=== PATIENT | female | born 1970 | race Two or more races ===

== ENCOUNTER 2017-09-27 13:26 | Emergency (ER) | payer BC, OTHER ==
[~2017-09-27 13:26] MED LIST: AMLO10TA2 PO; AMLO1CAP12 PO; ASPI81TA50 PO; DILT180C2 PO; LISI1TAB3 PO; METO-239 PO; PHEN15CA2 PO; flexeril
--- NOTE | 2017-09-27 14:15 | PHYS DOC ---
Past History Past Medical History: Hypertension Past Surgical History: Other Smoking: Non-smoker Alcohol Use: None Drug Use: None Adult General Chief Complaint Chief Complaint: UPPER EXTREMITY PAIN HPI HPI 47-year-old right-handed female patient states she woke up 3 days ago with left shoulder pain because she slept bad on her left shoulder. Patient states the pain is constant and getting worse with movement of her arm. Patient denies shortness of breath, chest pain, focal weakness. Patient complains of mild numbness of her hand because of not moving her hand. Review of Systems Review of Systems Constitutional: Denies fever or chills [] Eyes: Denies change in visual acuity, redness, or eye pain [] HENT: Denies nasal congestion or sore throat [] Respiratory: Denies cough or shortness of breath [] Cardiovascular: No additional information not addressed in HPI [] GI: Denies abdominal pain, nausea, vomiting, bloody stools or diarrhea [] : Denies dysuria or hematuria [] Musculoskeletal: Denies back pain, reports joint pain [] Integument: Denies rash or skin lesions [] Neurologic: Denies headache, focal weakness or sensory changes [] Endocrine: Denies polyuria or polydipsia [] All other systems were reviewed and found to be within normal limits, except as documented in this note. Current Medications Current Medications Current Medications Medications (Trade) Dose Ordered Sig/Chio Start Time Stop Time Status Last Admin Dose Admin Ketorolac Tromethamine (Toradol) 60 mg 1X ONCE 09/27/17 14:15 09/27/17 14:16 UNV Allergies Allergies Allergies Coded Allergies Type Severity Reaction Last Updated Verified No Known Drug Allergies 10/30/14 No Physical Exam Physical Exam Constitutional: Well developed, well nourished, mild distress, non-toxic appearance. [] HENT: Normocephalic, atraumatic Eyes: PERRLA, EOMI, conjunctiva normal, no discharge. [] Neck: Normal range of motion, no tenderness, supple, no stridor. [] Cardiovascular:Heart rate regular rhythm, no murmur [] Lungs & Thorax: Bilateral breath sounds clear to auscultation [] Skin: Warm, dry, no erythema, no rash. [] Back: No tenderness, no CVA tenderness. [] Extremities: Left shoulder without deformity or edema, painful range of motion, no neurovascular deficit Neurologic: Alert and oriented X 3, normal motor function, normal sensory function, no focal deficits noted. [] Psychologic: Anxious, judgement normal, mood normal. [] EKG EKG EKG interpreted by me. EKG at 1340 showed sinus rhythm at rate of 78, no acute ST and T-wave elevation, T-wave abnormality in lateral leads[] Radiology/Procedures Radiology/Procedures [] [place] [address] IMAGING REPORT Signed PATIENT: ENMA RAMEY ACCOUNT: [id number] : 1970 LOCATION: ER AGE: 47 SEX: F EXAM STATUS: REG ER ORD. PHYSICIAN: CESAR PARIS MD REASON: left shoulder pain PROCEDURE: SHOULDER 2+V LEFT Three-view left shoulder study History: Left shoulder pain for one day. Findings: No acute fracture or dislocation or osteolytic process is seen. No AC joint separation is evident. There is calcification of the lateral rotator cuff insertion onto the greater tubercle and there is calcification of the subdeltoid bursa. Findings are consistent with calcific tendinitis and bursitis. IMPRESSION: Calcific tendinitis and bursitis. DICTATED AND SIGNED BY: CATHERINE MON MD DATE: 09/27/17 1424 CC: SUKH LIRIANO MD; CESAR PARIS MD ~ Course & Med Decision Making Course & Med Decision Making Pertinent Imaging studies reviewed. (See chart for details) Evaluation of patient in ER showed 47-year-old female patient with complaining of left shoulder pain for 3 days that getting force with movement. Patient did not have deformities of shoulder but had painful range of motion. Patient was able to fall asleep after pain medication. X-ray of shoulder showed calcified tendinitis. Plan to apply a shoulder sling and instruction to move her shoulder with help of other had and follow with her primary care physician. [] Dragon Disclaimer Dragon Disclaimer This electronic medical record was generated, in whole or in part, using a voice recognition dictation system. Departure Departure: Impression: Primary Impression: Left shoulder tendinitis Disposition: 01 HOME, SELF-CARE (At 1459) Condition: IMPROVED Referrals: SUKH LIRIANO MD (PCP) Patient Instructions: Calcific Tendinitis Additional Instructions: Moves your left shoulder frequently Apply ice on your left shoulder Follow-up with your primary care physician in 3-5 days Return to ER if not getting better Scripts Naproxen (NAPROSYN) 500 Mg Tablet 1 TAB PO BID, #20 TAB 1 Refill Prov: CESAR PARIS MD 09/27/17 Methylprednisolone (MEDROL) 4 Mg Tab.ds.pk 1 PKG PO UD, #1 PKG Prov: CESAR PARIS MD 09/27/17 CESAR PARIS MD Sep 27, 2017 14:15
--- NOTE | 2017-09-27 14:27 | RAD ---
Three-view left shoulder study History: Left shoulder pain for one day. Findings: No acute fracture or dislocation or osteolytic process is seen. No AC joint separation is evident. There is calcification of the lateral rotator cuff insertion onto the greater tubercle and there is calcification of the subdeltoid bursa. Findings are consistent with calcific tendinitis and bursitis. IMPRESSION: Calcific tendinitis and bursitis.
[2017-09-27] MEDS ORDERED: KETOROLAC 60 MG/2 ML VIAL. IM ONE (14:30)
[2017-09-27] MEDS ORDERED: NAPR-683 PO (15:01)
[2017-09-27] MEDS ORDERED: METH4TAB2 PO (15:01)
[2017-09-27] MEDS ORDERED: cloNIDine HCL 0.1 MG TABLET ONE (15:23)
[2017-09-27] MEDS ORDERED: cloNIDine HCL 0.1 MG TABLET PO ONE (15:30)
[2017-09-27 15:50] VITALS: BP 184/93
--- NOTE | 2017-09-27 18:13 | EKG ---
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
== END 2017-09-27 15:57 | disposition home or self-care (01) ==
LOC: ER 13:26
DX: M75.92 Shoulder lesion, unspecified, left shoulder (principal); I10 Essential (primary) hypertension
CPT/HCPCS: 73030; 93005; 96372; 99284; J1885

== ENCOUNTER 2018-02-12 11:23 | Inpatient (IN) | payer BC, OTHER ==
[~2018-02-12] VITALS: Ht 172.7 cm; Wt 105.2 kg
[2018-02-12] VITALS (13 sets, daily range): BP systolic 120–220; BP diastolic 60–109
[~2018-02-12 11:23] MED LIST changes: +METH4TAB2 PO; +NAPR-683 PO
[2018-02-12] MEDS ORDERED: ACETAMINOPHEN 325 MG TABLET PO PRN (12:15)
[2018-02-12] MEDS ORDERED: HYDROcodone/APAP 5/325MG 1 TAB TABLET PO PRN ×2 (12:15→16:45)
[2018-02-12] MEDS ORDERED: hydrALAZINE 20 MG/ML VIAL. IV PRN (12:15)
[2018-02-12] MEDS ORDERED: hydrALAZINE 20 MG/ML VIAL. IV ONE (12:15)
[2018-02-12] MEDS ORDERED: ENOXAPARIN 40 MG/0.4 ML SYRINGE. SQ SCH (12:15)
[2018-02-12 12:35] LABS: BASO % 1 % (0-3); EOS # 0.1 x10^3/uL (0.0-0.7); EOS % 1 % (0-3); HEMATOCRIT 41.3 % (36.0-47.0); HEMOGLOBIN 13.7 g/dL (12.0-15.5); LYMPH # 2.4 x10^3/uL (1.0-4.8); LYMPH % 28 % (24-48); MEAN CORPUSCULAR HEMOGLOBIN 25 pg (25-35); MEAN CORPUSCULAR HGB CONC 33 g/dL (31-37); MEAN CORPUSCULAR VOLUME 76 fL (79-100); MONO # 0.5 x10^3/uL (0.0-1.1); MONO % 6 % (0-9); NEUT # 5.4 x10^3uL (1.8-7.7); NEUT % 64 % (31-73); PLATELET COUNT 185 x10^3/uL (140-400); RED BLOOD COUNT 5.45 x10^6/uL (3.50-5.40); RED CELL DISTRIBUTION WIDTH 15.2 % (11.5-14.5); WHITE BLOOD COUNT 8.5 x10^3/uL (4.0-11.0)
[2018-02-12 12:35] LABS: BACTERIA,URINE FEW /HPF (0-FEW); BILIRUBIN,URINE NEG (NEG); CLARITY,URINE HAZY; COLOR,URINE YELLOW; GLUCOSE,URINE NEG (NEG); NITRITE,URINE NEG (NEG); SQUAMOUS EPITHELIAL CELL,UR MANY /LPF; UROBILINOGEN,URINE 0.2 mg/dL (0.2 mg/dL)
[2018-02-12 12:38] LABS: ALBUMIN 3.7 g/dL (3.4-5.0); ALBUMIN/GLOBULIN RATIO 0.9 (1.0-1.7); CALCIUM 8.7 mg/dL (8.5-10.1); CREATININE 0.8 mg/dL (0.6-1.0); GFR 77.2; MAGNESIUM 1.9 mg/dL (1.8-2.4); POTASSIUM 4.1 mmol/L (3.5-5.1); TOTAL BILIRUBIN 0.5 mg/dL (0.2-1.0); TOTAL PROTEIN 7.7 g/dL (6.4-8.2)
[2018-02-12] MEDS ORDERED: MORPHINE SULFATE 4 MG/ML DISP.SYRIN. IV PRN (12:45)
--- NOTE | 2018-02-12 13:22 | RAD ---
CT head without intravenous contrast History: Tingling down right arm since previous day. Comparison: None. Technique: Axial images are obtained of the head from the skull base through the vertex without IV contrast. Exposure: One or more of the following individualized dose reduction techniques were utilized for this examination: 1. Automated exposure control 2. Adjustment of the mA and/or kV according to patient size 3. Use of iterative reconstruction technique Findings: Variant anatomy with cavum septi pellucidi et vergae is present. The ventricles are appropriate in size, shape, and location for the patient's age. No obvious intracranial mass, mass-effect, midline shift, hemorrhage or obvious acute infarction is identified. Basilar cisterns are patent. Bone windows demonstrate no acute calvarial abnormality. The visualized paranasal sinuses appear clear. Impression: No acute intracranial process. Please note that CT can be relatively insensitive to acute ischemic infarction for up to 24 hours after symptom onset. Electronically signed by: Renan Puri MD (02/12/2018 1:18 PM) [id number]
[2018-02-12] MEDS ORDERED: LEVO100T5 PO (13:58)
[2018-02-12] MEDS ORDERED: LISI-334 PO (13:58)
[2018-02-12] MEDS ORDERED: METO25TA4 PO (13:58)
[2018-02-12] MEDS ORDERED: APIX5TAB3 PO (14:06)
[2018-02-12] MEDS ORDERED: CYCL-331 PO (14:06)
--- NOTE | 2018-02-12 14:26 | RAD ---
INDICATION: Short of breath, tingling down right arm. TECHNIQUE: Two-view chest radiograph was obtained. Comparison is from April 18, 2016. FINDINGS: The lungs are clear. There is no pleural effusion. The heart is not enlarged and there is no heart failure. Bony structures are intact. Anterior cervical fusion hardware is noted. Leads overlie the patient. IMPRESSION: No acute thoracic findings. Electronically signed by: Todd Watson MD (02/12/2018 2:22 PM) [facility]
[2018-02-12] MEDS ORDERED: CYCLOBENZAPRINE 10 MG TABLET. PO PRN (15:45)
--- NOTE | 2018-02-12 15:56 | RAD ---
Indication: Right arm numbness Technique: Study is dated February 12, 2018. Grayscale, color-flow, and spectral waveform analysis was performed. There is no comparison study available. Findings: Right Carotid: The 2 D images demonstrate minimal soft plaquing with no evidence of significant narrowing. The color images are normal without turbulence or jet effect. The CCA Peak systolic velocity is 97 cm/sec, ICA peak systolic velocity is 105 cm/sec, and ICA end-diastolic velocity is 32 cm/sec. The ICA/CCA ratio is 1.1. Left Carotid: The 2 D images demonstrate minimal soft plaquing with no evidence of significant narrowing. The color images are normal without turbulence or jet effect. The CCA Peak systolic velocity is 97 cm/sec, ICA peak systolic velocity is 111 cm/sec, and ICA end-diastolic velocity is 40 cm/sec. The ICA/CCA ratio is 1.1. Vertebral Arteries: Antegrade flow is noted within both vertebral arteries. All measurements follow NASCET methodology. Impression: Minimal soft plaquing in the carotid bulbs without hemodynamically significant stenosis. Electronically signed by: Todd Watson MD (02/12/2018 3:52 PM) [facility]
--- NOTE | 2018-02-12 16:02 | PDOC2 ---
CONSULT Date of Admission DATE: 02/12/18 TIME: 15:55 Reason for Consult: arrhythmias, hypertension History of Present Illness Ms Dejesus is a 47 year old female who was direct admitted from her PCP office with complaints of right arm numbness and tingling, neck pain and blurred vision. She reports that she started having numbness yesterday but thought it would resolve. This am while getting ready for work she began to have discomfort up her neck and headache. She states she had bent down and on getting up she had significant blurring of her vision and felt her heart was racing. She has been diagnosed with paroxysmal atrial fibrillation and due to possibility of stroke on MRI, was started on Eliquis which she had been taking only daily. She was noted to also have significantly elevated blood pressure. She does report taking her meds regularly with the exception of today. Nursing did check with her pharmacy and were told that she had not picked up meds since October. She denies other symptoms./ Past Medical History 03/22/16 The left ventricle is normal size. The left ventricular systolic function is normal. The ejection fraction is 55-60%. There is no significant aortic valvular stenosis. Doppler and Color Flow revealed no significant aortic regurgitation. Doppler and Color Flow revealed mild mitral regurgitation. Doppler and Color Flow revealed trace tricuspid regurgitation. 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 Past Surgical History neck fusion, c section, tubal ligation Family History diabetes, hypertension, CAD Mom had CABG in her late 30s. Social History non smoker, no significant ETOH, no illicit drugs Current Medications Current Medications Acetaminophen/ Hydrocodone Bitart (Lortab 5/325) 1 tab PRN Q4HRS PRN PO Mild Pain Last administered on 02/12/18at 13:06; Start 02/12/18 at 12:15 Acetaminophen (Tylenol) 650 mg PRN Q6HRS PRN PO Headaches, Temp > 101.5F; Start 02/12/18 at 12:15 Morphine Sulfate (Morphine 4mg Syringe) 2 mg PRN Q1HR PRN IV PAIN; Start at 12:45 Enoxaparin Sodium (Lovenox 40mg Syringe) 40 mg Q24H SQ Last administered on at 12:22; Start 02/12/18 at 12:15; Stop 02/12/18 at 15:48; Status DC Ondansetron HCl (Zofran) 4 mg PRN Q8HRS PRN IV NAUSEA/VOMITING; Start 02/12/18 at 12:15 Hydralazine HCl (Apresoline) 10 mg PRN Q4HRS PRN IV ELEVATED BP, SEE COMMENTS Last administered on 02/12/18at 15:51; Start 02/12/18 at 12:15 Hydralazine HCl (Apresoline) 20 mg 1X ONCE IV Last administered on 02/12/18at 12:21; Start 02/12/18 at 12:15; Stop 02/12/18 at 12:31; Status DC Levothyroxine Sodium (Synthroid) 100 mcg DAILY06 PO ; Start 02/13/18 at 06:00 Lisinopril (Prinivil) 20 mg DAILY PO ; Start 02/13/18 at 09:00 Metoprolol Tartrate (Lopressor) 25 mg BID PO Last administered on 02/12/18at 15: 51; Start 02/12/18 at 21:00 Apixaban (Eliquis) 5 mg BID PO ; Start 02/12/18 at 21:00 Cyclobenzaprine HCl (Flexeril) 10 mg PRN Q6HRS PRN PO MUSCLE SPASMS; Start at 15:45 Active Scripts Active Medrol (Methylprednisolone) 4 Mg Tab.ds.pk 1 Pkg PO UD Reported Cyclobenzaprine Hcl 10 Mg Tablet 1 Tab PO TID PRN Eliquis (Apixaban) 5 Mg Tablet 5 Mg PO BID Levothyroxine Sodium 100 Mcg Tablet 1 Tab PO DAILY06 Metoprolol Tartrate 25 Mg Tablet 1 Tab PO BID Lisinopril 20 Mg Tablet 1 Tab PO DAILY Allergies: Coded Allergies: No Known Drug Allergies (Unverified , 10/30/14) Review of System as per HPI General: Alert, Oriented X3, Cooperative, mild distress HEENT: Atraumatic, EOMI, Mucous membr. moist/pink Lungs: Clear to auscultation, Normal air movement Heart: Regular rate, Normal S1, Normal S2, Other (no gallops, clicks or rubs) Abdomen: Normal bowel sounds, Soft Extremities: No cyanosis, No edema, Normal pulses Neuro: Normal speech Psych/Mental Status: Mental status NL, Mood NL VITALS Vital Signs Date Time Temp Pulse Resp B/P (MAP) Pulse Ox O2 Delivery O2 Flow Rate FiO2 02/12/18 15:51 197/94 02/12/18 14:06 Room Air 02/12/18 13:40 98.2 84 99 Labs Laboratory Tests Test 02/12/18 11:37 02/12/18 11:51 Urine Collection Type Unknown Urine Color Yellow Urine Clarity Hazy Urine pH 6.0 Urine Specific [place] 1.020 Urine Protein 30 mg/dl (NEG-TRACE) Urine Glucose (UA) Neg mg/dL (NEG) Urine Ketones (Stick) Neg mg/dL (NEG) Urine Blood Small (NEG) Urine Nitrite Neg (NEG) Urine Bilirubin Neg (NEG) Urine Urobilinogen Dipstick 0.2 mg/dL (0.2 mg/dL) Urine Leukocyte Esterase Neg (NEG) Urine RBC 1-2 /HPF (0-2) Urine WBC 1-4 /HPF (0-4) Urine Squamous Epithelial Cells Many /LPF Urine Bacteria Few /HPF (0-FEW) Urine Mucus Mod /LPF White Blood Count 8.5 x10^3/uL (4.0-11.0) Red Blood Count 5.45 x10^6/uL (3.50-5.40) Hemoglobin 13.7 g/dL (12.0-15.5) Hematocrit 41.3 % (36.0-47.0) Mean Corpuscular Volume 76 fL (79-100) Mean Corpuscular Hemoglobin 25 pg (25-35) Mean Corpuscular Hemoglobin Concent 33 g/dL (31-37) Red Cell Distribution Width 15.2 % (11.5-14.5) Platelet Count 185 x10^3/uL (140-400) Neutrophils (%) (Auto) 64 % (31-73) Lymphocytes (%) (Auto) 28 % (24-48) Monocytes (%) (Auto) 6 % (0-9) Eosinophils (%) (Auto) 1 % (0-3) Basophils (%) (Auto) 1 % (0-3) Neutrophils # (Auto) 5.4 x10^3uL (1.8-7.7) Lymphocytes # (Auto) 2.4 x10^3/uL (1.0-4.8) Monocytes # (Auto) 0.5 x10^3/uL (0.0-1.1) Eosinophils # (Auto) 0.1 x10^3/uL (0.0-0.7) Basophils # (Auto) 0.0 x10^3/uL (0.0-0.2) Prothrombin Time 10.4 SEC (9.4-11.4) Prothromb Time International Ratio 1.0 (0.9-1.1) Sodium Level 136 mmol/L (136-145) Potassium Level 4.1 mmol/L (3.5-5.1) Chloride Level 103 mmol/L (98-107) Carbon Dioxide Level 29 mmol/L (21-32) Anion Gap 4 (6-14) Blood Urea Nitrogen 8 mg/dL (7-20) Creatinine 0.8 mg/dL (0.6-1.0) Estimated GFR (Cockcroft-Gault) 77.2 BUN/Creatinine Ratio 10 (6-20) Glucose Level 87 mg/dL (70-99) Calcium Level 8.7 mg/dL (8.5-10.1) Magnesium Level 1.9 mg/dL (1.8-2.4) Total Bilirubin 0.5 mg/dL (0.2-1.0) Aspartate Amino Transf (AST/SGOT) 24 U/L (15-37) Alanine Aminotransferase (ALT/SGPT) 31 U/L (14-59) Alkaline Phosphatase 114 U/L (46-116) Creatine Kinase 117 U/L (26-192) Troponin I Quantitative < 0.017 ng/mL (0-0.055) Total Protein 7.7 g/dL (6.4-8.2) Albumin 3.7 g/dL (3.4-5.0) Albumin/Globulin Ratio 0.9 (1.0-1.7) Images EKG - sinus rhythm, non specific abnormalities. CT chest - Impression: No acute intracranial process. Please note that CT can be relatively insensitive to acute ischemic infarction for up to 24 hours after symptom onset. CXR - IMPRESSION: No acute thoracic findings. Assessment/Plan 1. accelerated hypertension - resume home meds, add HCTZ. Echo pending. If continuing to require PRN hydralazine would add Norvasc oral or scheduled hydralazine. 2. TIA - carotid pending. no acute abn by CT 3. paroxysmal atrial fibrillation - remains sinus rhythm. mild bradycardia. resume metoprolol at 1/2 dose. resume eliquis BID. suggest outpatient MCT for burden. 4. Cervical radiculopathy - toradol x1. mgmt per [facility]IG[facility] Feb 12, 2018 16:02
[2018-02-12] MEDS: ONDANSETRON PF 4 MG/2 ML VIAL. IV PRN ×2 (16:42→21:24)
[2018-02-12] MEDS ORDERED: KETOROLAC 30 MG/ML VIAL. IV PRN (16:45)
[2018-02-12] MEDS ORDERED: ONDANSETRON ODT 4 MG TAB.RAPDIS PO PRN (18:30)
[2018-02-12] MEDS ORDERED: ONDANSETRON ODT 4 MG TAB.RAPDIS ONE (18:31)
[2018-02-12] MEDS ORDERED: METOPROLOL TART IMMED RELEASE 25 MG TABLET PO SCH (21:00)
[2018-02-12] MEDS: METOPROLOL TART IMMED RELEASE 25 MG TABLET PO SCH (21:00)
[2018-02-12] MEDS: APIXABAN 5 MG TABLET. PO SCH (21:05)
[2018-02-13] VITALS (10 sets, daily range): BP systolic 111–172; BP diastolic 40–75
[2018-02-13 06:00] LABS: CALCIUM 8.5 mg/dL (8.5-10.1); CREATININE 0.7 mg/dL (0.6-1.0); GFR 90.1; POTASSIUM 3.5 mmol/L (3.5-5.1)
[2018-02-13] MEDS ORDERED: LEVOTHYROXINE 100 MCG TABLET PO SCH (06:00)
[2018-02-13 06:02] LABS: BASO # 0.1 x10^3/uL (0.0-0.2); BASO % 1 % (0-3); EOS % 0 % (0-3); HEMOGLOBIN 13.6 g/dL (12.0-15.5); LYMPH % 18 % (24-48); MEAN CORPUSCULAR HEMOGLOBIN 25 pg (25-35); MEAN CORPUSCULAR HGB CONC 33 g/dL (31-37); MEAN CORPUSCULAR VOLUME 76 fL (79-100); MONO # 0.5 x10^3/uL (0.0-1.1); MONO % 4 % (0-9); NEUT # 8.3 x10^3uL (1.8-7.7); NEUT % 77 % (31-73); PLATELET COUNT 275 x10^3/uL (140-400); RED BLOOD COUNT 5.37 x10^6/uL (3.50-5.40); RED CELL DISTRIBUTION WIDTH 15.8 % (11.5-14.5); WHITE BLOOD COUNT 10.8 x10^3/uL (4.0-11.0)
[2018-02-13 06:31] LABS: % BANDS 2 % (0-9); % BASOS 1 % (0-3); % EOS 1 % (0-5); % LYMPHS 18 % (24-48); % MONOS 3 % (0-10); % SEGS 75 % (35-66)
[2018-02-13 06:32] LABS: PLT ESTIMATE ADEQUATE (ADEQUATE)
[2018-02-13 06:34] LABS: POLYCHROMASIA SLIGHT; TOXIC GRANULATION SLIGHT
[2018-02-13] MEDS: APIXABAN 5 MG TABLET. PO SCH ×2 (07:25→17:47)
[2018-02-13] MEDS ORDERED: LISINOPRIL 20 MG TABLET ONE (07:25)
[2018-02-13] MEDS: METOPROLOL TART IMMED RELEASE 25 MG TABLET PO SCH ×2 (07:25→17:47)
[2018-02-13] MEDS ORDERED: hydroCHLOROthiazide 12.5 MG CAPSULE ONE (07:26)
[2018-02-13] MEDS ORDERED: hydroCHLOROthiazide 12.5 MG CAPSULE PO SCH (09:00)
[2018-02-13] MEDS ORDERED: LISINOPRIL 20 MG TABLET PO SCH (09:00)
--- NOTE | 2018-02-13 12:54 | PN ---
DATE: 02/13/2018 SUBJECTIVE: This 47-year-old female came in with all sorts of problems in terms of right arm numbness, tingling, neck pain, blurred vision loss. The patient was having possible TIA. As it were she was admitted to the hospital for further evaluation and treatment thereof. The patient seems to be doing relatively better right now, although she has had elevated blood pressure and we are continuing to monitor her accordingly. Recently, she had an MRI back a few months ago and did demonstrate evidence of a lacunar infarction, although present CT does not show any signs of such the MRI did. In any case, the patient's blood pressure was also markedly elevated this morning and so we had to place her on a nicardipine drip to keep her blood pressure under reasonable control as well as hydralazine. She is resting fairly comfortably. Her labs look basically stable on her CBC. Her chemistries were basically unremarkable. Troponin is negative. We will go ahead and continue to monitor the patient accordingly and make further evaluation on her per those results. Otherwise, the patient is alert and oriented. Her speech is fluent, spontaneous, appropriate. Cranial nerves 2-12 are grossly intact. PLAN: We will continue to monitor the patient accordingly make further evaluation on her along with Cardiology and Neurology. SUKH LIRIANO MD DR: DOMINICK/claudio JOB#: [id number] / [id number]
--- NOTE | 2018-02-13 13:57 | CARD ---
MR#: [id number] Date of Study: 02/12/2018 Ordering Physician: SUKH LIRIANO, Referring Physician: SUKH LIRIANO, Tech: TESSIE Mccann APPROVED REPORT EXAM: Two-dimensional and M-mode echocardiogram with Doppler and color Doppler. Other Information Quality : GoodHR: 61bpm INDICATION Atrial Fibrillation 2D DIMENSIONS RVDd3.0 (2.9-3.5cm)Left Atrium(2D)3.7 (1.6-4.0cm) IVSd1.4 (0.7-1.1cm)Aortic Root(2D)2.7 (2.0-3.7cm) LVDd4.6 (3.9-5.9cm)LVOT Diameter1.9 (1.8-2.4cm) PWd1.4 (0.7-1.1cm)LVDs2.9 (2.5-4.0cm) FS (%) 36.8 %SV66.6 ml LVEF(%)66.7 (>50%) Aortic Valve AoV Peak Carlton.191.4cm/sAoV VTI43.2cm AO Peak GR.14.7mmHgLVOT Peak [place].100.7cm/s LVOT VTI 26.98cmAO Mean GR.8mmHg EVA (VMAX)1.03im4GKG (VTI)1.86cm2 Mitral Valve MV E Vsxepcxn35.1cm/sMV DECEL XHHI392ts MV A Dyucworq23.6cm/sE/A Ratio1.0 Pulmonary Valve PV Peak Rdolcekl152.4cm/sPV Peak Grad.5mmHg LEFT VENTRICLE The left ventricle is normal size. There is mild concentric left ventricular hypertrophy. The left ve ntricular systolic function is normal. The ejection fraction is estimated at 65%. There is normal LV segmental wall motion. The left ventricular diastolic function and filling is normal for age. RIGHT VENTRICLE The right ventricle is normal size. The right ventricular systolic function is normal. ATRIA The left atrium size is normal. The right atrium size is normal. The interatrial septum is intact wit h no evidence for an atrial septal defect or patent foramen ovale as noted on 2-D or Doppler imaging. AORTIC VALVE The aortic valve is thickened but opens well. Doppler and Color Flow revealed no significant aortic r egurgitation. There is no significant aortic valvular stenosis. There is no aortic valvular vegetatio n. MITRAL VALVE The mitral valve is thickened but opens well. There is no evidence of mitral valve prolapse. There is no mitral valve stenosis. Doppler and Color-flow revealed trace mitral regurgitation. TRICUSPID VALVE The tricuspid valve leaflets are thickened , but open well. Doppler and Color Flow revealed no tricus pid valve regurgitation noted. There is no tricuspid valve prolapse or vegetation. There is no tricus pid valve stenosis. PULMONIC VALVE The pulmonic valve is not well visualized. Doppler and Color Flow revealed no pulmonic valvular regur gitation. There is no pulmonic valvular stenosis. GREAT VESSELS The aortic root is normal in size. The IVC was not visualized. PERICARDIAL EFFUSION There is no pleural effusion. There is no evidence of significant pericardial effusion. Critical Notification Critical Value: No <Conclusion> The left ventricular systolic function is normal. The ejection fraction is estimated at 65%. There is normal LV segmental wall motion. Doppler and Color-flow revealed trace mitral regurgitation. There is no evidence of significant pericardial effusion. Signed by : Jona Castillo, Electronically Approved : 02/13/2018 13:56:49
[2018-02-13] MEDS ORDERED: METO25TA4 PO (16:29)
[2018-02-13] MEDS ORDERED: HYDR12.53 PO (16:30)
--- NOTE | 2018-02-13 21:59 | CONS ---
DATE OF CONSULTATION: NEUROLOGY CONSULTATION REFERRING PHYSICIAN: Dr. Cedeño REASON FOR CONSULTATION: Headaches, blurred vision and numbness of the right upper extremity, rule out transient ischemic attack versus stroke. HISTORY OF PRESENT ILLNESS: This is a 47-year-old female who was admitted directly from her primary care physician's office on the account of acute onset of neck pain radiating into the right upper extremity and associated with numbness and paresthesia on the day before admission. The patient has not been taking her blood pressure medications regularly for the last 2 weeks. Also, she has not taken Eliquis " anticoagulant'' because she ran out of her medications. According to the patient, a brain MRI done recently revealed evidence of old stroke, but we could not obtain the official results. The patient stated she has had intermittent blurred vision and slight headaches. She denies chest pain, shortness of breath or palpitations; however, she has had intermittent cardiac arrhythmias and was diagnosed with paroxysmal atrial fibrillation approximately 2 weeks ago. The patient was placed on Eliquis a month ago, which she tried for 2 weeks, but she has not taken the medicine in the last 2 weeks. The patient was diagnosed with cervical radiculopathy 5 years ago and she had an MRI of the cervical spine, which revealed evidence of degenerative disk disease at multiple levels from C5-C7. Currently, she denies any new medical or neurological complaints. She denies chest pain, shortness of breath, palpitation, dysarthria, dysphagia, or vertigo. PAST MEDICAL HISTORY: Past medical history is significant for paroxysmal atrial fibrillations, hypertension, hypothyroidism, chronic radicular neck pain, and lower back pain. PAST SURGICAL HISTORY: Past surgical history is significant for anterior cervical fusion at C5-C6 in 2012, tubal ligation, , cardiac catheterization 2 years ago which was negative for coronary artery disease. SOCIAL HISTORY: The patient denies smoking, alcohol drinking, or illicit drug use. FAMILY HISTORY: Positive for hypertension, diabetes mellitus, coronary artery disease. Mother had coronary artery bypass graft in late 30s. CURRENT HOME MEDICATIONS: Eliquis 5 mg twice daily, aspirin 81 mg daily, hydrochlorothiazide 12.5 mg daily, lisinopril 20 mg daily, and levothyroxine 100 mcg daily, metoprolol 12.5 mg b.i.d. CURRENT HOSPITAL MEDICATIONS: Include fentanyl 50 mcg IV q. 2 hours p.r.n., nicardipine drip, Lortab 5/325 mg 2 tablets q. 6 hours p.r.n. for pain, Toradol 30 mg q. 6 hours p.r.n. intravenously for neck pain, Flexeril 10 mg q. 6 hours p.r.n. for muscle spasm, and hydralazine 10 mg q. 4 hours p.r.n. intravenously for severe hypertension. ALLERGIES: No known drug allergies. REVIEW OF SYSTEMS: A 10-point review of system was performed and consistent with neck pain radiating to the right shoulder and associated with numbness and paresthesia, mild frontal headaches. PHYSICAL EXAMINATION: GENERAL: Obese, moderately obese female, in acute distress. VITAL SIGNS: She weighs 232 pounds, blood pressure 120/67, respiratory rate 17, pulse is 62 regular, afebrile, oxygen saturation is 98% on room air. HEENT: Normocephalic, atraumatic, otherwise unremarkable. NECK: Supple. Negative for carotid bruit, JVD, lymphadenopathy or thyromegaly. LUNGS: Are clear to A and P. CARDIOVASCULAR: Regular rate and rhythm, normal S1, S2. There is no S3, S4, or murmur. ABDOMEN: Soft. Bowel sounds positive. EXTREMITIES: Are negative for cyanosis, clubbing or pitting edema. NEUROLOGICAL EXAMINATION: 1. MENTAL STATUS: The patient is alert and oriented x 3. Speech is fluent. There are no language dysfunctions. Memory, judgment, and abstract thinking are normal. The patient denies hallucination or delusion. 2. CRANIAL NERVES: Visual randolph are full. The pupils are reactive to light and accommodation. The extraocular movements are intact. There is no nystagmus. There is no facial motor or sensory deficit. Hearing is intact bilaterally. The palate is elevated symmetrically. Sternocleidomastoid muscles are powerful bilaterally. The patient shrugs her shoulders symmetrically, protrudes her tongue in the midline without fasciculation or atrophy. 3. MOTOR EXAMINATION: No focal muscle bulk was seen. The tone is normal. The strength is 5/5 throughout. 4. SENSORY EXAMINATION: Revealed diminished pinprick and light touch senses in the right C5 and C6 distributions compared to those on the left side. Deep tendon reflexes were symmetric and hypoactive. Gait and coordinations were normal. DIAGNOSTIC STUDIES: Initial nonenhanced head CT scan revealed no acute intracranial process. Carotid Doppler study revealed no significant stenosis of the internal carotid arteries bilaterally. Echocardiogram is pending. Chest x-ray revealed no acute thoracic findings. LABORATORY DATA: CBC revealed white blood cells of 10.8 thousand, hemoglobin 13.6, hematocrit 41, platelet count 275,000. Chemistry revealed sodium of 136, potassium 3.5, chloride 102, CO2 of 26, BUN is 8, creatinine 0.7, glucose 97, and the calcium is 8.5. Troponin level is normal. Lipid profile revealed an elevated cholesterol at 226 with elevated LDL to 167 with normal triglyceride at 212. Urinalysis is negative for urinary tract infections. IMPRESSION: 1. Emergency hypertension-resolved. 2. History of paroxysmal atrial fibrillation with current sinus bradycardia at rate of 757-758. 3. Chronic neck pain with cervical radiculopathy, more prominent at C5-C6, status post cervical spine fusion in 2012. 4. Multiple medical problems include hypertension, hypothyroidism, and currently hyperlipidemia, and paroxysmal atrial fibrillations. RECOMMENDATIONS: 1. Continue with current management initiated by Dr. Cedeño including multiple antihypertensives. 2. Continue with her current management for cervical radiculopathy. 3. Await echocardiogram. 4. We will arrange for EMG/NCS of the upper extremities to rule out entrapment neuropathy in the lower extremities versus cervical radiculopathy. M gO SARMIENTO MD DR: GENE/claudio JOB#: [id number] / [id number]
[2018-02-14] MEDS ORDERED: ASPIRIN ENTERIC COATED 81 MG TABLET.DR. PO SCH (08:00)
== END 2018-02-13 17:30 | disposition short-term general hospital (02) | DRG 69 ==
LOC: ICU 11:23 → UNDODISIN 02-13 17:30
PROVIDERS: ADMIT Family Medicine; ATTEND Family Medicine
DX: G45.9 Transient cerebral ischemic attack, unspecified (principal); I21.A1 Myocardial infarction type 2; I67.89 Other cerebrovascular disease; E78.5 Hyperlipidemia, unspecified; G89.29 Other chronic pain; R00.1 Bradycardia, unspecified; H54.7 Unspecified visual loss; M50.10 Cervical disc disorder with radiculopathy, unspecified cervical region; I10 Essential (primary) hypertension; E03.9 Hypothyroidism, unspecified; I48.0 Paroxysmal atrial fibrillation; Z86.32 Personal history of gestational diabetes; Z86.73 Personal history of transient ischemic attack (TIA), and cerebral infarction without residual deficits; Z83.3 Family history of diabetes mellitus; Z82.49 Family history of ischemic heart disease and other diseases of the circulatory system; Z98.1 Arthrodesis status; Z98.51 Tubal ligation status; Z79.899 Other long term (current) drug therapy
CPT/HCPCS: 36415; 70450; 71046; 80048; 80053; 80061; 81001; 82550; 83735; 84484; 85007; 85025; 85610; 87086; 87641; 93306; 93880; J0360; J1650; J2270; J2405; J7050

== ENCOUNTER 2018-12-16 16:43 | Emergency (ER) | payer BC, OTHER ==
[~2018-12-16] VITALS: Ht 170.2 cm; Wt 106.6 kg
[~2018-12-16 16:43] MED LIST changes: -AMLO10TA2 PO; +AMLO10TA8 PO; +APIX5TAB3 PO; +CYCL-331 PO; +HYDR12.572 PO; +LEVO100T5 PO; +LISI-334 PO; +METO25TA4 PO
[2018-12-16] MEDS ORDERED: hydrALAZINE 20 MG/ML VIAL. IV ONE (17:15)
[2018-12-16] MEDS ORDERED: METOPROLOL TARTRATE 5 MG/5 ML VIAL. IV ONE (17:45)
[2018-12-16 18:00] VITALS: BP 145/72
--- NOTE | 2018-12-16 18:01 | RAD ---
CT HEAD WO CONTRAST History: Headache, hypertension, on blood thinners, pressure behind the left eye Comparison: February 12, 2018 Technique: Noncontrast CT imaging was performed of the head. Exposure: One or more of the following individualized dose reduction techniques were utilized for this examination: 1. Automated exposure control 2. Adjustment of the mA and/or kV according to patient size 3. Use of iterative reconstruction technique. Findings: There is mild motion. No acute extra-axial or parenchymal hemorrhage is identified. There is no significant intra-axial mass effect, midline shift, or extra-axial fluid collection. The nicole-white differentiation of the major vascular territories is preserved. The ventricles, sulci, and cisterns are within normal limits in size and configuration. There is again cavum septum pellucidum and vergae. The mastoid air cells and the visualized paranasal sinuses are aerated. No acute calvarial abnormality is identified. Impression: 1. No acute intracranial abnormality is identified. Electronically signed by: Иван Cervantes MD (12/16/2018 5:58 PM) [facility]
[2018-12-16 18:04] LABS: BASO # 0.1 x10^3/uL (0.0-0.2); BASO % 1 % (0-3); EOS # 0.2 x10^3/uL (0.0-0.7); EOS % 2 % (0-3); HEMATOCRIT 38.6 % (36.0-47.0); HEMOGLOBIN 12.6 g/dL (12.0-15.5); LYMPH # 2.3 x10^3/uL (1.0-4.8); LYMPH % 28 % (24-48); MEAN CORPUSCULAR HEMOGLOBIN 24 pg (25-35); MEAN CORPUSCULAR HGB CONC 33 g/dL (31-37); MEAN CORPUSCULAR VOLUME 74 fL (79-100); MONO # 0.4 x10^3/uL (0.0-1.1); MONO % 5 % (0-9); NEUT # 5.4 x10^3uL (1.8-7.7); NEUT % 64 % (31-73); PLATELET COUNT 180 x10^3/uL (140-400); RED BLOOD COUNT 5.19 x10^6/uL (3.50-5.40); RED CELL DISTRIBUTION WIDTH 16.6 % (11.5-14.5); WHITE BLOOD COUNT 8.4 x10^3/uL (4.0-11.0)
--- NOTE | 2018-12-16 18:07 | PHYS DOC ---
Past History Past Medical History: A-Fib, Hypertension (SYL BANDA MD) Past Surgical History: Cervical Fusion, , Tubal ligation (SYL BANDA MD) Smoking: Non-smoker Alcohol Use: None Drug Use: None (SYL BANDA MD) Adult General Chief Complaint Chief Complaint: HYPERTENSION HPI HPI Patient is a 48 year old female who presents with complaint of headache and pressure behind denies. Patient states that her blood pressure has been running high over the past 2-3 days. States that she ran out of her lisinopril me dication. On further questioning she also notes that she is supposed be taking metoprolol and has not been taking this over the past few days as well. Patient went to her primary care physician's office and was referred to the emergency department due to hypertension and headache. Notes that her blood pressure has been over 230/110 at home. Blood pressure present to the emergency department is 190/106. Denies chest pain or shortness of breath currently. Notes that she has been having headache over the past 2-3 days and has been taking Tylenol with no relief. Denies loss of vision, difficulty with speech or swallowing, or unil ateral weakness. States that she has had history of "mini stroke." States that she is currently on Eliquis daily and has not missed any doses. (SYL BANDA MD) Review of Systems Review of Systems Constitutional: Denies fever or chills [] Eyes: Denies change in visual acuity, redness, or eye pain [] HENT: Denies nasal congestion or sore throat [] Respiratory: Denies cough or shortness of breath [] Cardiovascular: No additional information not addressed in HPI [] GI: Denies abdominal pain, nausea, vomiting, bloody stools or diarrhea [] : Denies dysuria or hematuria [] Musculoskeletal: Denies back pain or joint pain [] Integument: Denies rash or skin lesions [] Neurologic: Denies headache, focal weakness or sensory changes [] Endocrine: Denies polyuria or polydipsia [] All other systems were reviewed and found to be within normal limits, except as documented in this note. (SYL BANDA MD) Current Medications Current Medications Current Medications Medications (Trade) Dose Ordered Sig/Chio Start Time Stop Time Status Last Admin Dose Admin Hydralazine HCl (Apresoline) 10 mg 1X ONCE 12/16/18 17:15 12/16/18 17:16 DC 12/16/18 17:53 10 MG Metoprolol Tartrate (Lopressor Vial) 5 mg 1X ONCE 12/16/18 17:45 12/16/18 17:46 DC 12/16/18 17:54 5 MG (SYL BANDA MD) Allergies Allergies Allergies Coded Allergies Type Severity Reaction Last Updated Verified No Known Drug Allergies 10/30/14 No (SYL BANDA MD) Physical Exam Physical Exam Constitutional: Well developed, well nourished, no acute distress, non-toxic a ppearance. [] HENT: Normocephalic, atraumatic, bilateral external ears normal, oropharynx moist, no oral exudates, nose normal. [] Eyes: PERRLA, EOMI, conjunctiva normal, no discharge. [] Neck: Normal range of motion, no tenderness, supple, no stridor. [] Cardiovascular:Heart rate regular rhythm, no murmur [] Lungs & Thorax: Bilateral breath sounds clear to auscultation [] Abdomen: Bowel sounds normal, soft, no tenderness, no masses, no pulsatile masses. [] Skin: Warm, dry, no erythema, no rash. [] Back: No tenderness, no CVA tenderness. [] Extremities: No tenderness, no cyanosis, no clubbing, ROM intact, no edema. [] Neurologic: Alert and oriented X 3, normal motor function, normal sensory function, no focal deficits noted. [] Psychologic: Affect normal, judgement normal, mood normal. [] (SYL BANDA MD) Current Patient Data Vital Signs Vital Signs Date Time Temp Pulse Resp B/P (MAP) Pulse Ox O2 Delivery O2 Flow Rate FiO2 12/16/18 17:54 70 162/95 12/16/18 16:57 98.3 16 Room Air (SYL BANDA MD) EKG EKG Interpreted by me: Heart rate 66, sinus rhythm, normal intervals, normal axis, no acute ST/T-wave abnormalities present[] (SYL BANDA MD) Radiology/Procedures Radiology/Procedures [address] [address] IMAGING REPORT Signed PATIENT: ENMA STEINBERG ACCOUNT: [id number] : 1970 LOCATION: ER AGE: 48 SEX: F EXAM STATUS: REG ER ORD. PHYSICIAN: SYL BANDA MD REASON: headache, htn, on blood thinners, pressure behind left eye PROCEDURE: CT HEAD WO CONTRAST CT HEAD WO CONTRAST History: Headache, hypertension, on blood thinners, pressure behind the left eye Comparison: February 12, 2018 Technique: Noncontrast CT imaging was performed of the head. Exposure: One or more of the following individualized dose reduction techniques were utilized for this examination: 1. Automated exposure control 2. Adjustment of the mA and/or kV according to patient size 3. Use of iterative reconstruction technique. Findings: There is mild motion. No acute extra-axial or parenchymal hemorrhage is identified. There is no significant intra-axial mass effect, midline shift, or extra-axial fluid collection. The nicole-white differentiation of the major vascular territories is preserved. The ventricles, sulci, and cisterns are within normal limits in size and configuration. There is again cavum septum pellucidum and vergae. The mastoid air cells and the visualized paranasal sinuses are aerated. No acute calvarial abnormality is identified. Impression: 1. No acute intracranial abnormality is identified. Electronically signed by: Amador Cooney MD (12/16/2018 5:58 PM) [facility] DICTATED AND SIGNED BY: AMADOR COONEY MD DATE: 12/16/18 1362 CC: SUKH LIRIANO MD; SYL BANDA MD ~ [] (SYL BANDA MD) Course & Med Decision Making Course & Med Decision Making Pertinent Labs and Imaging studies reviewed. (See chart for details) Patient was initially given hydralazine with partial reduction in blood pressure. Also given IV Lopressor as she has not taken this medication as well over the past few days. CT imaging negative for intracranial hemorrhage. At time of sign out, blood work is pending. Care of patient signed out to Dr. Wells at [phone].[] (SYL BANDA MD) Course & Med Decision Making The patient's labs are unremarkable except for slightly low potassium of 3.2. I have advised she take a multivitamin. She does not have signs of infection. Her blood pressure has improved to 167/74. She is feeling better at this time. She will talk with her PCP first thing in the morning to get her additional prescriptions refilled. She does have metoprolol at home. She would like to go home. She is stable for discharge at this time. (LEE ANN WELLS DO) Dragon Disclaimer Dragon Disclaimer This electronic medical record was generated, in whole or in part, using a voice recognition dictation system. (SYL BANDA MD) Departure Departure: Impression: Primary Impression: Accelerated hypertension Disposition: 01 HOME, SELF-CARE Condition: STABLE Referrals: SUKH LIRIANO MD (PCP) Patient Instructions: Hypertension, [id number] SYL BANDA MD December 16, 2018 18:07 LEE ANN WELLS DO December 16, 2018 18:28
[2018-12-16 18:16] LABS: BACTERIA,URINE 0 /HPF (0-FEW); BILIRUBIN,URINE NEG (NEG); CLARITY,URINE HAZY; COLOR,URINE YELLOW; GLUCOSE,URINE NEG (NEG); NITRITE,URINE NEG (NEG); RBC,URINE 0 /HPF (0-2); SQUAMOUS EPITHELIAL CELL,UR OCC /LPF; UROBILINOGEN,URINE 0.2 mg/dL (0.2 mg/dL); WBC,URINE 0 /HPF (0-4)
[2018-12-16 18:18] LABS: ALBUMIN 3.6 g/dL (3.4-5.0); ALBUMIN/GLOBULIN RATIO 0.9 (1.0-1.7); CREATININE 0.8 mg/dL (0.6-1.0); GFR 76.9; POTASSIUM 3.2 mmol/L (3.5-5.1); TOTAL BILIRUBIN 0.3 mg/dL (0.2-1.0); TOTAL PROTEIN 7.6 g/dL (6.4-8.2)
--- NOTE | 2018-12-16 18:29 | EKG ---
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
== END 2018-12-16 18:33 | disposition home or self-care (01) ==
LOC: ER 16:43
DX: I10 Essential (primary) hypertension (principal); I48.91 Unspecified atrial fibrillation
CPT/HCPCS: 36415; 70450; 80053; 81001; 85025; 93005; 96374; 96375; 99285; J0360; J3490

== ENCOUNTER 2019-04-28 08:24 | Observation (INO) | payer OTHER ==
[~2019-04-28] VITALS: Ht 170.2 cm; Wt 113.9 kg
[~2019-04-28 08:24] MED LIST changes: -AMLO1CAP12 PO; +AMLO1CAP13 PO; +LISI1TAB23 PO; -LISI1TAB3 PO
--- NOTE | 2019-04-28 09:09 | PHYS DOC ---
Past History Past Medical History: A-Fib, Hypertension Past Surgical History: Cervical Fusion, , Tubal ligation Smoking: Non-smoker Alcohol Use: None Drug Use: None Adult General Chief Complaint Chief Complaint: CHEST PAIN HPI HPI Patient is a 48-year-old female history of A. fib has not been on Sarah Tessa for a while diabetes hypertension has missed some doses of lisinopril and metoprolol coming in with chest pain described as tightness and pressure center of the chest worse with ambulation also feels short of breath with walking and some intermittent tingling of the left hand as well last night when lying in bed the chest tightness and pressure was quite severe actually currently is somewhat improved but family members convince her to come to the emergency room today patient also has had some intermittent headache left-sided headache described as pressure, comes and goes Review of Systems Review of Systems Constitutional: Denies fever or chills [] Eyes: Denies change in visual acuity, redness, or eye pain [] Respiratory GI: Denies abdominal pain, nausea, vomiting, bloody stools or diarrhea [] : Denies dysuria or hematuria [] Musculoskeletal: Denies back pain or joint pain [] Integument: Denies rash or skin lesions [] Neurologic: All other systems were reviewed and found to be within normal limits, except as documented in this note. Current Medications Current Medications Current Medications Medications (Trade) Dose Ordered Sig/Chio Start Time Stop Time Status Last Admin Dose Admin Amlodipine Besylate (Norvasc) 10 mg 1X ONCE 04/28/19 09:30 04/28/19 09:31 Aspirin (Children'S Aspirin) 324 mg 1X ONCE 04/28/19 09:30 04/28/19 09:31 Nitroglycerin (Nitro-Bid Oint) 1 inch 1X ONCE 04/28/19 09:30 04/28/19 09:31 Allergies Allergies Allergies Coded Allergies Type Severity Reaction Last Updated Verified No Known Drug Allergies 10/30/14 No Physical Exam Physical Exam Constitutional: Well developed, well nourished, no acute distress, non-toxic appearance. [] HENT: Normocephalic, atraumatic, bilateral external ears normal, oropharynx moist, no oral exudates, nose normal. [] Eyes: PERRLA, EOMI, conjunctiva normal, no discharge. [] Neck: Normal range of motion, no tenderness, supple except for slightly limited range of motion when looking to the left due to prior C-spine surgery, no stridor. [] Cardiovascular:Heart rate regular rhythm, no murmur [] Lungs & Thorax: Bilateral breath sounds clear to auscultation [] Abdomen: Bowel sounds normal, soft, no tenderness, no masses, no pulsatile masses. [] Skin: Warm, dry, no erythema, no rash. [] Back: No tenderness, no CVA tenderness. [] Extremities: No tenderness, no cyanosis, no clubbing, ROM intact, no edema. [] Neurologic: Alert and oriented X 3, normal motor function, normal sensory function, no focal deficits noted. [] Psychologic: Affect normal, judgement normal, mood normal. [] Current Patient Data Vital Signs blood pressure has been elevated. Distress * None Blood Pressure Systolic * 212 mm Hg (100-140) H Blood Pressure Diastolic * 105 mm Hg (60-100) H Blood Pressure Mean * 140 mm Hg Pulse Rate * 83 beats per minute (60-90) Respiratory Rate * 18 breaths per minute (12-24) Oxygen Delivery Method * Room Air Bedside Pulse Oximetry * 96 % Treatment Prior to Arrival * No Complaint of Pain * Yes Pain Scale Type * Numeric Pain Assessment Label * Medial * Pain Location Chest * Pain Description Acute Numeric Pain Scale patient is afebrile going to the nurse EKG EKG []Normal sinus rhythm rate of 79 no acute ischemic changes noted interpreted by me the timing encounter Radiology/Procedures Radiology/Procedures [] Impressions: IMPRESSION: 1. No acute thoracic, abdominal or pelvic finding. 2. Distal colonic diverticulosis. 3. Physiologic dominant left ovarian follicle/follicular cyst measuring 2.7 cm and multiple nabothian cysts within the cervix. Electronically signed by: Arianne Carrillo MD (04/28/2019 10:00 AM) [facility] Course & Med Decision Making Course & Med Decision Making Pertinent Labs and Imaging studies reviewed. (See chart for details) []Heart score is a [id number] TOTAL 5 Patient describes chest pain with exertion in the setting of hypertension with blood pressures in the 210 range. General ER workup did reveal leukocytosis I am not sure the etiology of this we did a NEVILLE CT scan that's negative acute patien t described a mild headache but neck is supple she is alert and oriented she does not have a clinical picture consistent with meningitis at this time. Culture and lactic acid have been pending now ceftriaxone was given presumptively urinalysis again is pending. I will plan to admit the patient anyway for chest pain rule out I spoke with Dr. Bang and we discussed the leukocytosis as well in the pending testing and workup of that problem as well. Perhaps it is a stress response but 23 is pretty high with a left shift as well. Again patient is afebrile with actually elevated blood pressure here in the emergency room ts c/o chest pain and tightness since last night, pt also states her Dragon Disclaimer Dragon Disclaimer This electronic medical record was generated, in whole or in part, using a voice recognition dictation system. Departure Departure: Impression: Primary Impression: Chest pain Additional Impression: Leukocytosis Disposition: ADMITTED INPATIENT Admitting Physician: Sukh Liriano Condition: STABLE Referrals: SUKH LIRIANO MD (PCP) Problem Qualifiers BERYL BUCKNER MD Apr 28, 2019 09:09
[2019-04-28 09:12] LABS: BASO # 0.1 x10^3/uL (0.0-0.2); BASO % 0 % (0-3); EOS % 0 % (0-3); HEMATOCRIT 43.4 % (36.0-47.0); LYMPH # 1.2 x10^3/uL (1.0-4.8); LYMPH % 5 % (24-48); MEAN CORPUSCULAR HEMOGLOBIN 26 pg (25-35); MEAN CORPUSCULAR HGB CONC 32 g/dL (31-37); MEAN CORPUSCULAR VOLUME 80 fL (79-100); MONO # 0.4 x10^3/uL (0.0-1.1); MONO % 2 % (0-9); NEUT # 22.2 x10^3uL (1.8-7.7); NEUT % 93 % (31-73); PLATELET COUNT 250 x10^3/uL (140-400); RED BLOOD COUNT 5.41 x10^6/uL (3.50-5.40); RED CELL DISTRIBUTION WIDTH 15.4 % (11.5-14.5); WHITE BLOOD COUNT 23.8 x10^3/uL (4.0-11.0)
--- NOTE | 2019-04-28 09:20 | RAD ---
EXAM: Chest, single view. HISTORY: Chest pain. COMPARISON: 02/12/2018 FINDINGS: A frontal view of the chest is obtained. There is no infiltrate, pleural effusion or pneumothorax. The heart is normal in size. There is cervical spinal fusion instrumentation. IMPRESSION: No acute pulmonary finding. Electronically signed by: Arianne Carrillo MD (04/28/2019 9:17 AM) [facility]
[2019-04-28 09:25] LABS: ALBUMIN 3.7 g/dL (3.4-5.0); ALBUMIN/GLOBULIN RATIO 0.8 (1.0-1.7); CALCIUM 8.9 mg/dL (8.5-10.1); GFR 59.4; POTASSIUM 4.3 mmol/L (3.5-5.1); TOTAL BILIRUBIN 0.3 mg/dL (0.2-1.0); TOTAL PROTEIN 8.2 g/dL (6.4-8.2)
[2019-04-28] MEDS ORDERED: ASPIRIN 81 MG TAB.CHEW PO ONE (09:30)
[2019-04-28] MEDS ORDERED: NITROGLYCERIN OINT 1 GM PACKET. TP ONE (09:30)
[2019-04-28] MEDS ORDERED: amLODIPine BESYLATE 5 MG TABLET PO ONE (09:30)
[2019-04-28 09:43] LABS: % BANDS 4 % (0-9); % BASOS 0 % (0-3); % EOS 0 % (0-5); % LYMPHS 7 % (24-48); % MONOS 0 % (0-10); % SEGS 89 % (35-66); ANISOCYTOSIS SLIGHT; PLT ESTIMATE ADEQUATE (ADEQUATE)
[2019-04-28 09:45] LABS: TOXIC VACUOLATION PRESENT
[2019-04-28] MEDS ORDERED: IV NORMAL SALINE 1,000ML 1,000 ML IV ONE (09:45)
[2019-04-28] MEDS ORDERED: IOHEXOL 300 MG/ML 75 ML VIAL. IV ONE (10:00)
--- NOTE | 2019-04-28 10:03 | RAD ---
EXAM: Chest, abdomen and pelvis CT with intravenous contrast. HISTORY: Epigastric pain. Chest pain. Leukocytosis. TECHNIQUE: Computed tomographic images of the chest, abdomen and pelvis were obtained following the administration of intravenous contrast. Multiplanar reformatting was performed. *One or more of the following individualized dose reduction techniques were utilized for this examination: 1. Automated exposure control. 2. Adjustment of the mA and/or kV according to patient size. 3. Use of iterative reconstruction technique. COMPARISON: None. FINDINGS: Chest: The heart is normal in size. The aorta is normal in caliber. There is no evidence of aortic dissection. The thyroid is unremarkable. There are few calcified right hilar granulomas. There is no pathologically enlarged mediastinal or hilar lymph node. There is no pneumothorax or pleural effusion. There is no infiltrate or suspicious pulmonary nodule. There is no suspicious osseous lesion. Abdomen and pelvis: No hepatic lesion is seen. The gallbladder is contracted due to the preprandial status the patient. The pancreas is unremarkable. There are few granulomas within the spleen. The adrenal glands are unremarkable. There may be a tiny cortical cyst or focus of cortical scarring within the anterior right kidney. There is no suspicious renal lesion. There is no appendicitis. There is no bowel obstruction. There is distal colonic diverticulosis. There is no diverticulitis. The urinary bladder is unremarkable. There are multiple nabothian cysts within the cervix. The ovaries are prominent in size and there is a suspected dominant left ovarian follicle/follicular cyst measuring 2.7 cm. There is no lymphadenopathy. The aorta is normal in caliber. There is no aortic dissection. There is a tiny periumbilical hernia to the left of midline containing fat. There is scarring within the ventral pelvic wall likely due to a prior section. There are few nonspecific retroperitoneal and mesenteric lymph nodes. There are degenerative changes involving the spine. There is instrumented fusion at the lower cervical levels, not formally assessed on this exam. IMPRESSION: 1. No acute thoracic, abdominal or pelvic finding. 2. Distal colonic diverticulosis. 3. Physiologic dominant left ovarian follicle/follicular cyst measuring 2.7 cm and multiple nabothian cysts within the cervix. Electronically signed by: Arianne Carrillo MD (04/28/2019 10:00 AM) [facility]
[2019-04-28 10:34] LABS: BACTERIA,URINE 0 /HPF (0-FEW); BILIRUBIN,URINE NEG (NEG); CLARITY,URINE CLEAR; COLOR,URINE YELLOW; GLUCOSE,URINE 500 mg/dL (NEG); HYALINE CASTS, URINE MOD /HPF; NITRITE,URINE NEG (NEG); RBC,URINE 0 /HPF (0-2); SQUAMOUS EPITHELIAL CELL,UR FEW /LPF; UROBILINOGEN,URINE 0.2 mg/dL (0.2 mg/dL); WBC,URINE RARE /HPF (0-4)
[2019-04-28] MEDS ORDERED: IV NORMAL SALINE 50ML 50 ML ONE (10:38)
[2019-04-28] MEDS ORDERED: cefTRIAXone SODIUM 1 GM VIAL ONE (10:38)
[2019-04-28] MEDS ORDERED: IV NORMAL SALINE 500ML 500 ML IV ONE (11:00)
--- NOTE | 2019-04-28 12:00 | NUR ---
The patient, ENMA STEINBERG, 48 y/o, F admitted by SUKH LIRIANO MD, was given written information regarding hospital policies, unit procedures and contact persons. Valuables were checked and left in room. Patient resting comfortably on side of bed, states she took home medications this AM and has been complaining of headache along with chest pressures since yesterday. Pt states that her SBP usually range around 140-150s but today when arriving to the ER they were much higher. Currently does not follow with a weight guesser but see Dr Liriano for BP management. Call light within reach and oriented x4 to room and facility needs. Will notify physician of arrival to unit.
[2019-04-28 12:13] VITALS: BP 184/91
[2019-04-28] MEDS ORDERED: ACETAMINOPHEN 325 MG TABLET PO PRN (12:45)
[2019-04-28] MEDS ORDERED: PIP/TAZO PER PHARMACY MC PRN (13:00)
[2019-04-28] MEDS ORDERED: VANCOMYCIN PER PHARMACY MC PRN (13:00)
[2019-04-28] MEDS ORDERED: LABETALOL 20 MG/4 ML DISP.SYRIN. IVP PRN (13:00)
[2019-04-28] MEDS: IV NORMAL SALINE 1,000ML 1,000 ML IV SCH (13:11)
[2019-04-28 13:21] VITALS: BP 159/69
--- NOTE | 2019-04-28 13:39 | RAD ---
Axial CT images of the head were obtained without IV contrast. Comparison: 12/16/2018. Indication: Encephalopathy Findings: No mass effect or hemorrhage is seen. The ventricles are not enlarged or effaced. No midline shift is noted. There is no intra or extra axial fluid collection. Interval note is made of a cavum septum pellucidum. No bony or soft tissue abnormality is seen. The visualized paranasal sinuses are clear. Impression: 1. No acute intracranial process seen on non- contrast head CT. Electronically signed by: Fletcher Canseco MD (04/28/2019 1:35 PM) [facility]
[2019-04-28] MEDS: PIPERACILLIN/TAZOBACTAM 4.5 GM in IV NORMAL SALINE 50ML 50 ML IV SCH ×2 (13:59→18:08)
[2019-04-28] MEDS ORDERED: VANCOMYCIN 2 GM in IV NORMAL SALINE 500ML 500 ML IV ONE (14:00)
[2019-04-28 14:41] VITALS: BP 154/63
--- NOTE | 2019-04-28 15:03 | NUR ---
Pharmacy Vancomycin Dosing Note S:Consulted to monitor and dose vancomycin started 04/28/19. O:ENMA STEINBERG is a 48 year old F with Empir[employer] Height: 5 feet, 7 inches Weight: 113.945173 kg [place] Body Weight: 61.60 Adjusted Body Weight: 82.48 Dosing Weight: actual Other Antibiotics: ZOSYN LABS: Last BUN: 13 Last Creatinine: 1.0 Creatinine Clearance: 90.6 Last WBC: 23.8 Vancomycin Dosing: Loading Dose: 2000 mg x1 Dosing Weight: ACTUAL Target Trough: 15-20 A: Initial dosing is based on height, actual weight, renal function, and indication. P: 1. Give Vancomycin 2000mg IV initially, then Vancomycin 1750mg IV q12h 2. Follow up Trough level on 04/30/19 at 0130 3. Pharmacy will continue to monitor, follow and adjust therapy as needed. RAHUL MOORE RPH 04/28/19 [id number]
--- NOTE | 2019-04-28 15:53 | NUR ---
Patient resting at this time, family at bedside. Currently getting echo at this time, awaiting to have carotid dopplers. Patient states she is feeling much better from when coming into the ER. PRN tylenol given due to headache, this has resolved. Will continue to monitor patient throughout day.
--- NOTE | 2019-04-28 16:40 | CARD ---
MR#: [id number] Date of Study: 04/28/2019 Ordering Physician: SUKH LIRIANO, Referring Physician: SUKH LIRIANO, Tech: Nafisa Clmeente APPROVED REPORT EXAM: Two-dimensional and M-mode echocardiogram with Doppler and color Doppler. Other Information Quality : GoodHR: 85bpm INDICATION Atrial Fibrillation Hypertension/HCVD Chest Pain RISK FACTORS Diabetes 2D DIMENSIONS RVDd2.9 (2.9-3.5cm)Left Atrium(2D)4.1 (1.6-4.0cm) IVSd1.2 (0.7-1.1cm)Aortic Root(2D)2.4 (2.0-3.7cm) LVDd5.3 (3.9-5.9cm)LVOT Diameter2.0 (1.8-2.4cm) PWd1.0 (0.7-1.1cm)LVDs3.1 (2.5-4.0cm) FS (%) 42.1 %SV99.1 ml LVEF(%)72.7 (>50%) Aortic Valve AoV Peak Carlton.184.9cm/sAoV VTI46.0cm AO Peak GR.13.7mmHgLVOT Peak [place].144.1cm/s LVOT VTI 33.92cmAO Mean GR.9mmHg EVA (VMAX)2.67fb2OXH (VTI)2.26cm2 Mitral Valve MV E Wnydtuiz39.8cm/sMV DECEL BXXJ989ny MV A Gpyeocgu318.9cm/sE/A Ratio0.9 Pulmonary Valve PV Peak Vqnhjhno028.5cm/sPV Peak Grad.4mmHg Tricuspid Valve TR P. Chojmxsd392gi/sRAP POIOOPUE6fsNd TR Peak Gr.87wvIgOQNG05fyWj Pulmonary Vein S1 Nmguuwfs67.1cm/sD2 Khhuerzl95.9cm/s LEFT VENTRICLE The left ventricle is normal size. There is mild to moderate concentric left ventricular hypertrophy. The left ventricular systolic function is normal and the ejection fraction is within normal range. T he Ejection Fraction is 60-65%. There is normal LV segmental wall motion. Transmitral Doppler flow pa ttern is Grade II-pseudonormal filling dynamics. RIGHT VENTRICLE The right ventricle is normal size. There is normal right ventricular wall thickness. The right ventr icular systolic function is normal. ATRIA The left atrium is mildly dilated. The right atrium size is normal. The interatrial septum is intact with no evidence for an atrial septal defect or patent foramen ovale as noted on 2-D or Doppler imagi ng. AORTIC VALVE The aortic valve is normal in structure and function. Doppler and Color Flow revealed no significant aortic regurgitation. There is no significant aortic valvular stenosis. MITRAL VALVE The mitral valve is normal in structure and function. There is no evidence of mitral valve prolapse. There is no mitral valve stenosis. Doppler and Color-flow revealed trace mitral regurgitation. TRICUSPID VALVE The tricuspid valve is normal in structure and function. Doppler and Color Flow revealed no tricuspid valve regurgitation noted. There is no tricuspid valve stenosis. PULMONIC VALVE The pulmonary valve is normal in structure and function. Doppler and Color Flow revealed no pulmonic valvular regurgitation. There is no pulmonic valvular stenosis. GREAT VESSELS The aortic root is normal in size. The IVC is normal in size and collapses >50% with inspiration. PERICARDIAL EFFUSION There is no evidence of significant pericardial effusion. Critical Notification Critical Value: No <Conclusion> The left ventricular systolic function is normal and the ejection fraction is within normal range. Th e Ejection Fraction is 60-65%. There is normal LV segmental wall motion. Signed by : Kong Rodriguez, Electronically Approved : 04/28/2019 16:40:30
--- NOTE | 2019-04-28 17:48 | RAD ---
Exam: Ultrasound carotid bilateral Indication: Left-sided weakness Technique: Real-time grayscale and color Doppler images of the carotid were obtained by the department blanket washer. Comparisons: None FINDINGS: Peak systolic velocity as follows: Right: Common carotid artery: 109 cm/s Internal carotid artery: 118 cm/s External carotid artery: 179 cm/s Left: Common carotid artery: 125 cm/s Internal carotid artery: 116 cm/s External carotid artery: 148 cm/s Mild soft plaque noted diffusely throughout the carotid vasculature. Anterior grade flow in the vertebral arteries bilaterally. IMPRESSION: 1. No significant stenosis of the internal carotid arteries bilaterally. 2. Anterograde flow in the vertebral arteries bilaterally. Electronically signed by: Bryan Perla MD (04/28/2019 5:44 PM) [facility]
[2019-04-28 18:11] VITALS: BP 146/65
[2019-04-28 20:00] VITALS: BP 159/74
--- NOTE | 2019-04-28 21:00 | NUR ---
pt was c/o of left arm numbness and left shoulder pain/numbness. EKG, trop was completed. Trop negative, EKG showed no changes. Pt has symptoms only when laying flat or on her left side. When you sit patient up the symptoms resolve. Pt states she has had cervical fusion and that she was told that she needs another fusion, but has not returned to surgeon as of yet. Pt states that she has not been taking her Eliquis for 1 month, and her antihypertensives for [address] Cedeño, no further orders received.
[2019-04-28] MEDS ORDERED: ZOLPIDEM 5 MG TABLET. PO PRN (21:15)
[2019-04-28] MEDS: LACTOBACILLUS RHAMNOSUS GG 1 CAPSULE. PO SCH (21:21)
[2019-04-28] MEDS ORDERED: ACETAMINOPHEN 500 MG TABLET PO PRN (21:30)
[2019-04-28] MEDS ORDERED: CYCLOBENZAPRINE 10 MG TABLET. PO PRN (21:30)
[2019-04-28] MEDS ORDERED: NAPROXEN 375 MG TABLET PO ONE (21:45)
--- NOTE | 2019-04-28 22:28 | HP ---
ADMIT DATE: 04/28/2019 HISTORY OF PRESENT ILLNESS: A 48-year-old female came in with severe multiple problems. She had severe headache and also extremely high blood pressure. The patient has a family history of AFib, but has not been on Eliquis for a while. The patient coming in with some chest pain, just tightness, and chest pressure in the center of her chest, worse with ambulation, also feels short of breath while walking. The patient also notes some tingling in her left hand and arm and lying in bed, some chest tightness. As a result of this, seen in the Emergency Room and was brought in. She also was noted to have an elevated white count of approximately 20,000 and the patient was brought in and made further evaluation on her as indicated for her severe urgent hypertension as well as left arm weakness and her history of chronic atrial fibrillation. PAST MEDICAL HISTORY: That of CVA, TIA, neurological surgery, fusion, headache, numbness, paroxysmal atrial fibrillation. The patient has cardiac catheterization negative 2 years ago, hypercholesterolemia, hypertension, tubal ligation, , musculoskeletal disorders, orthopedic surgery, neck fusion, back pain, hypothyroidism, influenza vaccination. ALLERGIES: No known drug allergies. The patient is a full code. HOME MEDICATIONS: Include that of Eliquis 5 mg b.i.d., metoprolol 12.5 b.i.d., lisinopril 1 p.o. b.i.d. FAMILY HISTORY: Positive for diabetes, hypertension. SOCIAL HISTORY: The patient denies smoking, alcohol or drug use. REVIEW OF SYSTEMS: Outside of her chest tightness and chest pain, she also has severe headache in the back of her head radiating around to the front, mild nausea. The patient also has some left arm tingling and numbness noted there. Neurologically, otherwise unremarkable. No nausea, vomiting, melena, hematochezia or hematemesis. No diaphoresis. PHYSICAL EXAMINATION: GENERAL: This is a very pleasant female. VITAL SIGNS: The patient's initial blood pressure 203/110, pulse 83, patient's blood pressure came down to 146/65, respiratory rate 17, pulse 77, afebrile. HEENT: The patient's head was atraumatic, normocephalic. Eyes: PERRLA without jaundice. The mouth and throat were normal. NECK: Supple, without JVD, carotid bruits or thyromegaly. LUNGS: Diminished throughout, but clear. CARDIOVASCULAR: Regular sinus rhythm, S1, S2. ABDOMEN: Soft, nontender, no rebound or guarding. Positive bowel sounds. EXTREMITIES: No clubbing, cyanosis, edema. NEUROLOGIC: The patient is alert and oriented x 3 except for some tingling down the left arm and severe headache. Otherwise, eyes were PERRLA, EOMI. Sclerae clear, fundi benign. Mouth and throat normal as indicated above. Neck supple, without JVD, carotid bruits or thyromegaly. The patient otherwise stable there. On exam as noted the blood pressure in the ER was noted to be as high as 212/105. Mean blood pressure of 140. The patient was brought in for rule out [place] protocol as well as monitoring for any signs of TIA as well as stroke and avolition. The patient also had a markedly elevated white count of nearly 24,000. The patient had a lactic acid that was elevated. Her cardiac enzymes were negative. Her blood sugar was elevated at 241. D-dimer was unremarkable. The patient's beta hCG was negative. I am not sure why they did that, but they did it. Echocardiography was performed by Dr. Rodriguez and showed a good ejection fraction of 60-65%. IMPRESSION: Chest pain, hypertensive urgency, paroxysmal atrial fibrillation, possible TIA, leukocytosis severe, elevated lactic acid, possible SIRS, although imaging including a chest x-ray was unremarkable. Chest abdominal CT showed no acute findings of any significance in terms of the situation with her elevated white count or chest discomfort for that matter. There was no evidence of aortic dissection, small right hilar granulomatous disease, otherwise unremarkable. The patient's abdominal CT, abdomen and pelvis was unremarkable. CT of the head was unremarkable. Carotid Dopplers showed no significant stenosis and good antegrade flow of the posterior circulation. In any case, the patient has been admitted for further evaluation. Continue on IV antibiotic therapy, careful for any possible sepsis. Also, she is on labetalol. Cardiology consultation and make further evaluation on her as indicated. SUKH LIRIANO MD DR: DOMINICK/claudio JOB#: [id number] / [id number]
[2019-04-29] MEDS: PIPERACILLIN/TAZOBACTAM 4.5 GM in IV NORMAL SALINE 50ML 50 ML IV SCH ×2 (00:59→05:59)
[2019-04-29 01:00] VITALS: BP 145/68
--- NOTE | 2019-04-29 01:06 | EKG ---
[address] [address] Test Date: 2019-04-28 Test Time: 19:33:34 Pat Name: ENMA STEINBERG Department: Room: [facility] Gender: F Education Rep: DUSTY : 1970 Requested By: SUKH LIRINAO Order Number: [id number] Reading MD: Measurements Intervals [place] Rate: 82 P: 40 [place]: 158 QRS: 26 QRSD: 84 T: 57 QT: 380 QTc: 447 Interpretive Statements SINUS RHYTHM NORMAL ECG RI6.02 No previous ECG available for comparison
--- NOTE | 2019-04-29 01:07 | EKG ---
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
[2019-04-29] MEDS: IV NORMAL SALINE 1,000ML 1,000 ML IV SCH (01:19)
[2019-04-29] MEDS ORDERED: VANCOMYCIN 1.75 GM in IV NORMAL SALINE 500ML 500 ML IV SCH (02:00)
[2019-04-29 06:00] VITALS: BP 128/56
[2019-04-29 06:22] LABS: CALCIUM 7.6 mg/dL (8.5-10.1); CREATININE 0.8 mg/dL (0.6-1.0); GFR 76.9; POTASSIUM 3.8 mmol/L (3.5-5.1)
[2019-04-29 06:46] LABS: BASO % 0 % (0-3); EOS % 0 % (0-3); HEMATOCRIT 35.5 % (36.0-47.0); HEMOGLOBIN 11.4 g/dL (12.0-15.5); LYMPH # 1.6 x10^3/uL (1.0-4.8); LYMPH % 8 % (24-48); MEAN CORPUSCULAR HEMOGLOBIN 26 pg (25-35); MEAN CORPUSCULAR HGB CONC 32 g/dL (31-37); MEAN CORPUSCULAR VOLUME 79 fL (79-100); MONO # 0.9 x10^3/uL (0.0-1.1); MONO % 4 % (0-9); NEUT # 17.3 x10^3uL (1.8-7.7); NEUT % 88 % (31-73); PLATELET COUNT 231 x10^3/uL (140-400); RED BLOOD COUNT 4.49 x10^6/uL (3.50-5.40); RED CELL DISTRIBUTION WIDTH 15.6 % (11.5-14.5); WHITE BLOOD COUNT 19.8 x10^3/uL (4.0-11.0)
[2019-04-29] MEDS ORDERED: ASPIRIN 325 MG TABLET PO SCH (08:00)
[2019-04-29 08:08] VITALS: BP 150/77
[2019-04-29] MEDS ORDERED: FLU VAX QS 2019-20 (36MOS+)/PF 0.5 ML SYRINGE. VAX IM ONE (09:00)
[2019-04-29] MEDS ORDERED: METOPROLOL TART IMMED RELEASE 25 MG TABLET PO SCH (10:00)
[2019-04-29] MEDS ORDERED: APIXABAN 5 MG TABLET. PO SCH (10:00)
[2019-04-29] MEDS ORDERED: LISINOPRIL 20 MG TABLET PO SCH (10:00)
--- NOTE | 2019-04-29 10:06 | NUR ---
Dr Cedeño here this AM to see patient, pt states she is feeling much better and denies complaints of pain or discomfort at this time. Denies of any neck, chest or back discomfort, no tingling to arm or legs. Nurse spoke with Nurse at Dr Cedeños office due to patient stating she had an injection a few days ago and stated it was toradol for her back, per nurse the injection was Toradol/Dex which could relate to increased WBC count. Nurse informed Dr Cedeño at this time. Orders to DC Fluids and ABT, order PT/OT and plan to discharge later today.
[2019-04-29] MEDS: LACTOBACILLUS RHAMNOSUS GG 1 CAPSULE. PO SCH (10:18)
[2019-04-29] MEDS ORDERED: ACET500T68 PO (11:02)
[2019-04-29] MEDS ORDERED: KETO10TA PO (11:02)
[2019-04-29] MEDS ORDERED: CYCL-331 PO (11:02)
[2019-04-29 11:37] VITALS: BP 147/77
--- NOTE | 2019-04-29 13:20 | NUR ---
Dr Cedeño notified nurse that patient is okay to discharge facilitiy and if patient is not having any chest pain or discomfort then it is okay to discharge facility. Patient states she is feeling great and is ready to go home today. Nurse canceled consult at this time and explained that she will be giving patient a [facility] cardiology card if she would like to make an appt with them regards blood pressures or concerns for the future. Patient getting dressed a this time and states she left her vehicle outside.
--- NOTE | 2019-04-29 13:46 | NUR ---
Patient ambulated off unit at this time independently to personal car with belongings. IV removed and given discharge instructions along with cardiology card and work note. Patient verbalizes discharge instructions given at this time and states she receieved medication refills a few days ago with Doctors office.
[2019-04-29 14:13] LABS: THYROID STIM HORMONE (TSH) 2.151 uIU/mL (0.358-3.740)
--- NOTE | 2019-04-29 22:46 | DS ---
DATE OF DISCHARGE: 04/29/2019 HOSPITAL COURSE: A 48-year-old female came in initially through the office and then the Emergency Room. The patient was noted to have extremely high blood pressure and paroxysmal atrial fibrillation. The patient's blood pressure was as high as approximately 220/110. The patient also has some tingling down her left arm. She had an elevated white count of about 20,000. There was concern with history of atrial fibrillation having some type of a TIA versus stroke and avolition. The patient was admitted to the hospital for further evaluation and treatment. She was placed on IV antibiotic therapy because her lactic acid was elevated at 2.1. Her cultures were all negative and she did not run any temperature or elevated pulse rate. The patient's blood pressure came down. The patient otherwise made good progress during the rest of her hospitalization. She was also seen by Cardiology. Chest x-ray was unremarkable as well as CT scan of abdomen and pelvis was unremarkable. Head CT, no acute process noted, she was having severe headaches and that was done there. Carotid Dopplers were also negative as well. Basically, her chemistries as noted except for the lactate and slightly low calcium, blood sugar was 131. Cardiac enzymes were negative. The patient did have slight elevation of neutrophils. Hemoglobin dropped from 14 down to 11.4. IMPRESSION: Left-sided weakness, possible transient ischemic attack, leukocytosis, possibly related to steroid use, anemia, unknown etiology, hypertensive urgency, essential hypertension, hyperglycemia. PLAN: The patient will be continued to be monitored as an outpatient, make further evaluation on her per those results. SUKH LIRIANO MD DR: DOMINICK/claudio JOB#: [id number] / [id number]
== END 2019-04-29 13:51 | disposition home or self-care (01) ==
LOC: ER 08:24 → ICU 11:17 → INTOOBSV 11:17
PROVIDERS: ADMIT Family Medicine; ATTEND Family Medicine
DX: R07.89 Other chest pain (principal); I16.0 Hypertensive urgency; I48.0 Paroxysmal atrial fibrillation; D72.829 Elevated white blood cell count, unspecified; N88.8 Other specified noninflammatory disorders of cervix uteri; K57.30 Diverticulosis of large intestine without perforation or abscess without bleeding; E78.00 Pure hypercholesterolemia, unspecified; E03.9 Hypothyroidism, unspecified; N83.00 Follicular cyst of ovary, unspecified side; Z82.49 Family history of ischemic heart disease and other diseases of the circulatory system; Z86.73 Personal history of transient ischemic attack (TIA), and cerebral infarction without residual deficits; Z83.3 Family history of diabetes mellitus; Z98.1 Arthrodesis status; Z23 Encounter for immunization
CPT/HCPCS: 36415; 70450; 71045; 71260; 74177; 80048; 80053; 80061; 81001; 82550; 82947; 83036; 83605; 83690; 84145; 84443; 84484; 84550; 84702; 85007; 85025; 85379; 87040; 90471; 90686; 93005; 93306; 93880; 96365; 96366; 96367; 96368; 99284; G0378; J0696; J2543; J3370; J7040; Q9967; G0379; J7030

== ENCOUNTER → 2019-10-17 | Outpatient (CLI) | payer BC, OTHER ==
[~2019-10-17] MED LIST changes: +ACET500T68 PO; +KETO10TA PO
--- NOTE | 2019-10-17 11:02 | RAD ---
Examination: FOOT LEFT 3V, ANKLE LEFT 3V History: Pain, injury Comparison/Correlation: None available at this time Findings: 3 views of the left foot and three-view exam of the left ankle were obtained. Small calcaneal spur is present. Enthesopathy at the distal Achilles tendon attachment site is noted. Degenerative narrowing of interphalangeal joints is mild. No fracture or bone destruction. Impression: No acute process. Mild degenerative change. Electronically signed by: Pako Clarke MD (10/17/2019 10:59 AM) [id number]
== END | disposition home or self-care (01) ==
LOC: DXRAD 09:58
PROVIDERS: ATTEND Family Medicine
DX: M77.32 Calcaneal spur, left foot (principal); M19.072 Primary osteoarthritis, left ankle and foot; M25.872 Other specified joint disorders, left ankle and foot; M77.8 Other enthesopathies, not elsewhere classified
CPT/HCPCS: 73610; 73630

== ENCOUNTER 2020-07-25 03:37 | Inpatient (IN) | payer BC, OTHER ==
[~2020-07-25] VITALS: Ht 170.2 cm; Wt 109.2 kg
[2020-07-25] VITALS (16 sets, daily range): BP systolic 111–220; BP diastolic 56–95
[~2020-07-25 03:37] MED LIST changes: +AMLO-187 PO; -AMLO10TA8 PO
--- NOTE | 2020-07-25 04:09 | EKG ---
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
[2020-07-25] MEDS ORDERED: NITROGLYCERIN PREMIX 250 ML IV ONE (04:15)
[2020-07-25] MEDS ORDERED: ASPIRIN CHEWABLE 81 MG TABLET. PO ONE (04:15)
--- NOTE | 2020-07-25 04:15 | PHYS DOC ---
Past History Past Medical History: A-Fib, CAD, CVA, Hypertension, Stroke Past Surgical History: , Tubal ligation, Other Additional Past Surgical Histo: cardiac stent in LAD Smoking: Non-smoker Alcohol Use: None Drug Use: None Adult General Chief Complaint Chief Complaint: HEADACHE HPI HPI Patient is a 49-year-old female presenting for elevated blood pressure and headache. Patient has known history of high blood pressure, takes 5 mg lisinopril daily in addition to 25 mg metoprolol daily; however, does not take as instructed which is 12.5 mg twice daily, she takes it 25 mg morning only. Nonetheless, patient reports approximately 72 hours of vague chest pressure and left neck pain. States approximately 7 hours prior to arrival experiencing left-sided jaw pain, dull headache and vague pressure in chest with radiation to left shoulder. Nothing known made better or worse. She is attempted to sleep but admits that ongoing pressure and BP reading 272/134 prompted her to come in for evaluation. She has never experienced chest pressure like this in the past. Does have significant cardiac history with x1 JOSSY placed approximately 1 year ago, reports taking 81 mg aspirin daily and recently stopped Brilinta as it had been 12 months since x1 stent placement in her LAD. She has significant family history of cardiac disease. She is established with [facility] cardiology group. Regarding headache, patient denies any changes in vision but admits sharp pain that is "one of the worst headaches of my life ". Denies any fever, URI-like symptoms, known COVID-19 patient contact, dizziness, shortness of breath, cough, abdominal pain, changes in bladder or bowel function, no urinary symptoms, no changes in motor or sensory function, no neurologic deficits reported. Review of Systems Review of Systems Fourteen body systems of review of systems have been reviewed. See HPI for pert inent positives and negative responses, other clinton all other systems are negative, non-pertinent or non-contributory Current Medications Current Medications Current Medications Medications (Trade) Dose Ordered Sig/Choi Start Time Stop Time Status Last Admin Dose Admin Aspirin (Aspirin Chewable) 324 mg 1X ONCE 07/25/20 04:15 07/25/20 04:16 UNV Allergies Allergies Allergies Coded Allergies Type Severity Reaction Last Updated Verified No Known Drug Allergies 10/30/14 No Physical Exam Physical Exam Constitutional: Well developed, well nourished, no acute distress, non-toxic appearance. HENT: Normocephalic, atraumatic, bilateral external ears normal, oropharynx moist, no oral exudates, nose normal. Eyes: PERRLA, EOMI, conjunctiva normal, no discharge. Neck: Normal range of motion, no tenderness, supple, no stridor. No nuchal rigidity, negative Kernig and Brezinski signs Cardiovascular: Heart rate regular, sinus rhythm, no murmurs rubs or gallops Lungs & Thorax: Bilateral breath sounds clear to auscultation Abdomen: Bowel sounds normal, soft, no tenderness, no masses, no pulsatile mass es. Nonsurgical abdomen, no peritoneal signs Skin: Warm, dry, no erythema, no rash. Back: No tenderness, no CVA tenderness. Extremities: No tenderness, no cyanosis, no clubbing, ROM intact, no edema. Neurologic: Alert and oriented X 3, grossly normal motor & sensory function, no focal deficits noted. Psychologic: Anxious affect, judgement normal, mood normal. Current Patient Data Vital Signs Vital Signs Date Time Temp Pulse Resp B/P (MAP) Pulse Ox O2 Delivery O2 Flow Rate FiO2 07/25/20 03:40 98.4 74 22 260/130 (173) 98 Room Air Lab Results Laboratory Tests Test 07/25/20 04:05 White Blood Count 7.3 x10^3/uL (4.0-11.0) Red Blood Count 5.93 x10^6/uL (3.50-5.40) Hemoglobin 16.1 g/dL (12.0-15.5) Hematocrit 49.2 % (36.0-47.0) Mean Corpuscular Volume 83 fL (79-100) Mean Corpuscular Hemoglobin 27 pg (25-35) Mean Corpuscular Hemoglobin Concent 33 g/dL (31-37) Red Cell Distribution Width 14.1 % (11.5-14.5) Platelet Count 235 x10^3/uL (140-400) Neutrophils (%) (Auto) 74 % (31-73) Lymphocytes (%) (Auto) 18 % (24-48) Monocytes (%) (Auto) 6 % (0-9) Eosinophils (%) (Auto) 1 % (0-3) Basophils (%) (Auto) 1 % (0-3) Neutrophils # (Auto) 5.4 x10^3uL (1.8-7.7) Lymphocytes # (Auto) 1.3 x10^3/uL (1.0-4.8) Monocytes # (Auto) 0.4 x10^3/uL (0.0-1.1) Eosinophils # (Auto) 0.1 x10^3/uL (0.0-0.7) Basophils # (Auto) 0.0 x10^3/uL (0.0-0.2) Sodium Level 137 mmol/L (136-145) Potassium Level 4.0 mmol/L (3.5-5.1) Chloride Level 100 mmol/L (98-107) Carbon Dioxide Level 28 mmol/L (21-32) Anion Gap 9 (6-14) Blood Urea Nitrogen 12 mg/dL (7-20) Creatinine 1.0 mg/dL (0.6-1.0) Estimated GFR (Cockcroft-Gault) 59.2 BUN/Creatinine Ratio 12 (6-20) Glucose Level 160 mg/dL (70-99) Calcium Level 8.8 mg/dL (8.5-10.1) Total Bilirubin 0.6 mg/dL (0.2-1.0) Aspartate Amino Transf (AST/SGOT) 30 U/L (15-37) Alanine Aminotransferase (ALT/SGPT) 48 U/L (14-59) Alkaline Phosphatase 106 U/L (46-116) Troponin I Quantitative < 0.017 ng/mL (0-0.055) UI-Obv-G-Type Natriuretic Peptide 79 pg/mL (0-124) Total Protein 8.1 g/dL (6.4-8.2) Albumin 4.0 g/dL (3.4-5.0) Albumin/Globulin Ratio 1.0 (1.0-1.7) Lipase 85 U/L (73-393) Urine Opiates Screen Neg (NEG) Urine Methadone Screen Neg (NEG) Urine Barbiturates Neg (NEG) Urine Phencyclidine Screen Neg (NEG) Urine Amphetamine/Methamphetamine Neg (NEG) Urine Benzodiazepines Screen Neg (NEG) Urine Cocaine Screen Neg (NEG) Urine Cannabinoids Screen Neg (NEG) Urine Ethyl Alcohol Neg (NEG) EKG EKG EKG ordered and interpreted by myself at 0355 hrs. as sinus rhythm at 80 bpm, unremarkable intervals, no axis deviation, no acute ischemic findings, no STEMI Repeat EKG performed 30 minutes after initial per protocol interpreted by myself at 0425 hours as sinus rhythm at 67 bpm, unremarkable intervals, no axis deviation, no ischemic findings, no STEMI Radiology/Procedures Radiology/Procedures XR CHEST 1V 07/25/2020 4:21 AM INDICATION: Hypertensive emergency COMPARISON: None available TECHNIQUE: Portable frontal view of the chest is provided. FINDINGS: The cardiomediastinal silhouette is within normal limits. Lungs are clear. There are no significant pleural effusions. There is no pulmonary vascular congestion. No pneumothorax. No suspicious osseous abnormality. Anterior cervical discectomy and fusion hardware is identified from C5 through C7. IMPRESSION: There is no acute cardiopulmonary process. Electronically signed by: Holley Oneil MD (07/25/2020 4:48 AM) [facility] CT head without contrast 07/25/2020 4:59 AM INDICATION: Hypertensive emergency, headache COMPARISON: CT head 04/28/2019 TECHNIQUE: Multiple axial CT images of the head were obtained from skull base through the vertex without intravenous contrast. FINDINGS: Head: Ventricles, sulci and basal cisterns are within normal limits. There is a cavum septum pellucidum. There is no hydrocephalus. Law-white matter differentiation is normal. There is no acute intracranial hemorrhage. There is no mass, mass effect or midline shift. Posterior fossa is normal in appearance. Visualized portions of the orbits are normal. Paranasal sinuses are well aerated. Mastoid air cells are well aerated. Scalp and calvaria are normal. IMPRESSION: No acute intracranial hemorrhage. Electronically signed by: Holley Oneil MD (07/25/2020 5:38 AM) [facility] CTA HEAD AND NECK W/WO CONTRAST 07/25/2020 5:00 AM INDICATION: Hypertensive emergency, headache COMPARISON: CT head 07/25/2020 TECHNIQUE: Multiple axial CT images of the head were obtained from skull base to the vertex without intravenous contrast. Multiple axial CT images of the head and neck were obtained after the intravenous administration of nonionic c ontrast. Coronal and sagittal reformats are provided. Maximum intensity projection images are provided. Stenosis calculations for CT, MR, and conventional angiography are based upon measurements of the distal ICA diameter in accordance with the NASCET met hodology. Stenosis calculations for carotid ultrasound studies are derived from validated velocity criteria which are known to correlate with the NASCET methodology. FINDINGS: Ventricles, sulci and basal cisterns are normal in appearance. Law-white matter differentiation is preserved. There is no mass, mass effect or midline shift. Posterior fossa is normal in appearance. Sella and suprasellar cistern appear normal. Orbits are normal in appearance . Scalp and calvaria appear intact. Paranasal sinuses are well aerated. Mastoid air cells are well aerated. Visualized portions of lungs are clear. Thyroid gland is normal in appearance. Neck soft tissues are normal in appearance. No pathologically enlarged cervical lymphadenopathy. Pharynx and larynx appear intact. Vascular findings: There is a normal three-vessel aortic arch. Origins of the brachiocephalic vessels are widely patent. Right common carotid artery is normal in course and caliber. No significant atherosclerotic changes are identified at the right carotid bifurcation. No significant stenosis of the right cervical internal carotid artery. External carotid artery is widely patent. Left common carotid artery is normal in course and caliber. No significant atherosclerotic changes are identified at the left carotid bifurcation. No significant stenosis of the left cervical internal carotid artery. External carotid artery is widely patent. Vertebral arteries are normal in course and caliber. Vertebral artery is dominant. Mild irregularity of the intracranial segment left vertebral artery may reflect intracranial atherosclerotic changes. Posterior inferior cerebral arteries are visualized. Intracranial segments of internal carotid arteries are normal in course and caliber. There is mild calcified atheromatous plaque involving the cavernous segments without significant stenosis. Origins of the ophthalmic segments of the internal carotid artery appears widely patent. Middle cerebral arteries are normal in course and caliber with patent sylvian branches. Anterior cerebral arteries are normal in course and caliber. Anterior communicating artery is visualized. Basilar artery is normal in mildly irregular suggestive of intracranial atherosclerosis. Superior cerebellar arteries are widely patent. Posterior cere bral arteries are normal in course and caliber. There is origin of the right posterior cerebral artery. There is no aneurysm, vascular malformation or high-grade stenosis/large vessel occlusion involving [place]. Superior sagittal sinus is patent. 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 IMPRESSION: 1. There is no evidence for acute intracranial hemorrhage. 2. There is no evidence for hemodynamically significant carotid stenosis. Mild intracranial atherosclerotic changes predominantly involving the left vertebral artery and basilar artery. 3. There is no aneurysm, vascular malformation or high-grade stenosis/large vessel occlusion involving the [place]. Electronically signed by: Holley Oneil MD (07/25/2020 5:53 AM) [facility] Heart Score HEART Score for Chest Pain: HEART Score for Chest Pain Response (Comments) Value History Moderately Suspicious 1 ECG Normal 0 Age >45 - < 65 1 Risk Factors >3 Risk Factors or Hx CAD 2 Troponin < Normal Limit 0 Total 4 Risk Factors: Risk Factors: DM, Current or recent (<one month) smoker, HTN, HLP, family history of CAD, obesity. Risk Scores: Risk Factors: DM, Current or recent (<one month) smoker, HTN, HLP, family history of CAD, obesity. Course & Med Decision Making Course & Med Decision Making Pertinent Labs and Imaging studies reviewed. (See chart for details) Discussed most likely diagnosis of hypertensive urgency. No obvious endorgan damage readily apparent. Patient's headache improved with 4 mg IV morphine. Patient's blood pressure improved with 20 mg IV labetalol from 272 systolic reading at home to 190 at time of admission. With that said, patient condition not improved with ER intervention, she will require admission for further medical mgmt I discussed case with Dr. Liriano, who agreed to accept patient under his care at [facility]. I updated patient on proposed plan of care and she was amenable for admission. All questions and concerns addressed prior to ER transport to [facility] for continued inpatient management Critical Care Time This patient required critical care. Due to the fact that the patient required a significant amount of one on one physician - patient contact time, ordering and review of studies, arranging urgent treatment with development of a management plan, evaluation of patients response to treatment with frequent reassessments, and discussions with other providers this patient required critical care time in excess of 30 minutes. Critical care time was indicated due to the inherent instability and/or potential for instability in this patient. The critical care time that is allocated to this patient is above and beyond any time spent on any other billable procedures performed on this patient. Dragon Disclaimer Dragon Disclaimer This electronic medical record was generated, in whole or in part, using a voice recognition dictation system. Departure Departure: Impression: Primary Impression: Hypertensive urgency Disposition: ADMITTED INPT THIS HOSP Admitting Physician: Sukh Liriano Condition: IMPROVED Referrals: SUKH LIRIANO MD (PCP) GARO LAZAR DO Jul 25, 2020 04:15
[2020-07-25 04:21] LABS: BASO % 1 % (0-3); EOS # 0.1 x10^3/uL (0.0-0.7); EOS % 1 % (0-3); HEMATOCRIT 49.2 % (36.0-47.0); HEMOGLOBIN 16.1 g/dL (12.0-15.5); LYMPH # 1.3 x10^3/uL (1.0-4.8); LYMPH % 18 % (24-48); MEAN CORPUSCULAR HEMOGLOBIN 27 pg (25-35); MEAN CORPUSCULAR HGB CONC 33 g/dL (31-37); MEAN CORPUSCULAR VOLUME 83 fL (79-100); MONO # 0.4 x10^3/uL (0.0-1.1); MONO % 6 % (0-9); NEUT # 5.4 x10^3uL (1.8-7.7); NEUT % 74 % (31-73); PLATELET COUNT 235 x10^3/uL (140-400); RED BLOOD COUNT 5.93 x10^6/uL (3.50-5.40); RED CELL DISTRIBUTION WIDTH 14.1 % (11.5-14.5); WHITE BLOOD COUNT 7.3 x10^3/uL (4.0-11.0)
--- NOTE | 2020-07-25 04:28 | EKG ---
[address] [address] Test Date: 2020-07-25 Test Time: 04:22:06 Pat Name: ENMA RAMEY Department: Room: Gender: F Cap Sizer: : 1970 Requested By: GARO LAZAR Order Number: [id number] Reading MD: Measurements Intervals [place]ith Rate: 67 P: 47 IN: 156 QRS: 24 QRSD: 88 T: 43 QT: 402 QTc: 428 Interpretive Statements SINUS RHYTHM NORMAL ECG RI6.02 No previous ECG available for comparison
[2020-07-25] MEDS ORDERED: LABETALOL 20 MG/4 ML DISP.SYRIN. IVP ONE ×2 (04:30→05:00)
[2020-07-25 04:32] LABS: CALCIUM 8.8 mg/dL (8.5-10.1); GFR 59.2
[2020-07-25 04:33] LABS: BARBITURATES NEG (NEG); BENZODIAZEPINES NEG (NEG); CANNABINOIDS NEG (NEG); COCAINE NEG (NEG); METHADONE NEG (NEG); OPIATES NEG (NEG); PHENCYCLIDINE NEG (NEG)
[2020-07-25 04:34] LABS: AMPHETAMINE/METHAMPHETAMINE NEG (NEG)
[2020-07-25 04:44] LABS: TOTAL BILIRUBIN 0.6 mg/dL (0.2-1.0); TOTAL PROTEIN 8.1 g/dL (6.4-8.2)
--- NOTE | 2020-07-25 04:50 | RAD ---
XR CHEST 1V 07/25/2020 4:21 AM INDICATION: Hypertensive emergency COMPARISON: None available TECHNIQUE: Portable frontal view of the chest is provided. FINDINGS: The cardiomediastinal silhouette is within normal limits. Lungs are clear. There are no significant pleural effusions. There is no pulmonary vascular congestion. No pneumothora x. No suspicious osseous abnormality. Anterior cervical discectomy and fusion hardware is identified fro m C5 through C7. IMPRESSION: There is no acute cardiopulmonary process. Electronically signed by: Holley Oneil MD (07/25/2020 4:48 AM) [facility]
[2020-07-25] MEDS ORDERED: MORPHINE SULFATE 4 MG/ML DISP.SYRIN. IV ONE (05:00)
[2020-07-25] MEDS ORDERED: IOHEXOL 350 MG/ML 100 ML VIAL. IV ONE (05:15)
[2020-07-25] MEDS ORDERED: CONTRAST GIVEN. MC PRN (05:15)
--- NOTE | 2020-07-25 05:40 | RAD ---
RS Compliance Statement: One or more of the following individualized dose reduction techniques were utilized for this examinat ion: 1. Automated exposure control 2. Adjustment of the mA and/or kV according to patient size 3. Use of iterative reconstruction technique CT head without contrast 07/25/2020 4:59 AM INDICATION: Hypertensive emergency, headache COMPARISON: CT head 04/28/2019 TECHNIQUE: Multiple axial CT images of the head were obtained from skull base through the vertex with out intravenous contrast. FINDINGS: Head: Ventricles, sulci and basal cisterns are within normal limits. There is a cavum septum pellucidum. Th ere is no hydrocephalus. Law-white matter differentiation is normal. There is no acute intracranial hemorrhage. There is no mass, mass effect or midline shift. Posterior fossa is normal in appearance. Visualized portions of the orbits are normal. Paranasal sinuses are well aerated. Mastoid air cells a re well aerated. Scalp and calvaria are normal. IMPRESSION: No acute intracranial hemorrhage. Electronically signed by: Holley Oneil MD (07/25/2020 5:38 AM) [facility]
--- NOTE | 2020-07-25 05:55 | RAD ---
PQRS Compliance Statement: One or more of the following individualized dose reduction techniques were utilized for this examinat ion: 1. Automated exposure control 2. Adjustment of the mA and/or kV according to patient size 3. Use of iterative reconstruction technique CTA HEAD AND NECK W/WO CONTRAST 07/25/2020 5:00 AM INDICATION: Hypertensive emergency, headache COMPARISON: CT head 07/25/2020 TECHNIQUE: Multiple axial CT images of the head were obtained from skull base to the vertex without i ntravenous contrast. Multiple axial CT images of the head and neck were obtained after the intravenou s administration of nonionic contrast. Coronal and sagittal reformats are provided. Maximum intensity projection images are provided. Stenosis calculations for CT, MR, and conventional angiography are based upon measurements of the dis surya ICA diameter in accordance with the NASCET methodology. Stenosis calculations for carotid ultraso und studies are derived from validated velocity criteria which are known to correlate with the NASCET methodology. FINDINGS: Ventricles, sulci and basal cisterns are normal in appearance. Law-white matter differentiation is p reserved. There is no mass, mass effect or midline shift. Posterior fossa is normal in appearance. Se lla and suprasellar cistern appear normal. Orbits are normal in appearance . Scalp and calvaria appea r intact. Paranasal sinuses are well aerated. Mastoid air cells are well aerated. Visualized portions of lungs are clear. Thyroid gland is normal in appearance. Neck soft tissues are normal in appearance. No pathologically enlarged cervical lymphadenopathy. Pharynx and larynx appear intact. Vascular findings: There is a normal three-vessel aortic arch. Origins of the brachiocephalic vessels are widely patent. Right common carotid artery is normal in course and caliber. No significant atherosclerotic changes a re identified at the right carotid bifurcation. No significant stenosis of the right cervical interna l carotid artery. External carotid artery is widely patent. Left common carotid artery is normal in course and caliber. No significant atherosclerotic changes ar e identified at the left carotid bifurcation. No significant stenosis of the left cervical internal c arotid artery. External carotid artery is widely patent. Vertebral arteries are normal in course and caliber. Vertebral artery is dominant. Mild irregularity of the intracranial segment left vertebral artery may reflect intracranial atherosclerotic changes. P osterior inferior cerebral arteries are visualized. Intracranial segments of internal carotid arteries are normal in course and caliber. There is mild ca lcified atheromatous plaque involving the cavernous segments without significant stenosis. Origins of the ophthalmic segments of the internal carotid artery appears widely patent. Middle cerebral arteri es are normal in course and caliber with patent sylvian branches. Anterior cerebral arteries are nor mal in course and caliber. Anterior communicating artery is visualized. Basilar artery is normal in mildly irregular suggestive of intracranial atherosclerosis. Superior cer ebellar arteries are widely patent. Posterior cerebral arteries are normal in course and caliber. The re is origin of the right posterior cerebral artery. There is no aneurysm, vascular malformation or high-grade stenosis/large vessel occlusion involving c [place]. Superior sagittal sinus is patent. Likely congenital hypoplasia of the right transve rse sinus. IMPRESSION: 1. There is no evidence for acute intracranial hemorrhage. 2. There is no evidence for hemodynamically significant carotid stenosis. Mild intracranial atheroscl erotic changes predominantly involving the left vertebral artery and basilar artery. 3. There is no aneurysm, vascular malformation or high-grade stenosis/large vessel occlusion involvin g the [place]. Electronically signed by: Holley Oneil MD (07/25/2020 5:53 AM) [facility]
[2020-07-25] MEDS ORDERED: ACETAMINOPHEN 325 MG TABLET PO PRN ×2 (06:00→08:15)
--- NOTE | 2020-07-25 08:00 | NUR ---
The patient, ENMA RAMEY, 49 y/o, F admitted by SUKH LIRIANO MD, was given written information regarding hospital policies, unit procedures and contact persons. Patient was brought up to ICU room 2 by ED and EMS staff. Pt able to ambulate from gurney to bed without difficulty. A&Ox4. VS have improved. blood pressure 160/87 on arrival to unit without need for gtt. Belongings checked and patient oriented to room. All questions answered. Medications and medical history reviewed with patient. TRISHA. Lenin RN
[2020-07-25] MEDS ORDERED: LISI-338 PO (08:07)
[2020-07-25] MEDS ORDERED: ASPI-630 PO (08:07)
[2020-07-25] MEDS ORDERED: ONDANSETRON PF 4 MG/2 ML VIAL. IVP PRN (08:15)
[2020-07-25] MEDS ORDERED: DEXTROSE 50% 25 GM / 50ML DISP.SYRIN. IV PRN (10:45)
[2020-07-25] MEDS: MORPHINE SULFATE 2 MG/ML DISP.SYRIN. IV PRN ×3 (11:42→19:27)
[2020-07-25] MEDS: INSULIN LISPRO 300 UNITS/3 ML VIAL. SQ SCH ×2 (12:00→16:44)
[2020-07-25] MEDS ORDERED: hydrALAZINE 20 MG/ML VIAL. IV PRN (14:15)
[2020-07-25] MEDS ORDERED: LISINOPRIL 20 MG TABLET PO ONE (14:45)
--- NOTE | 2020-07-25 15:42 | RAD ---
US RENAL DUPLEX History: Reason: htn urgency / Spl. Instructions: / History: Comparison: None. Technique: Multiple grayscale, color flow, and Doppler spectral waveform analysis images of the abdom inal aorta and renal arteries were obtained. Findings: Abdominal aorta peak systolic velocity: 85.4 cm/sec. Right main renal artery peak systolic velocity: 93.3 cm/sec. Right renal artery to aorta ratio: 1.09 Left main renal artery peak systolic velocity: 75.2 cm/sec. Left renal artery to aorta ratio: 0.88 Renal veins are patent. IVC unremarkable. The right kidney measures 11 cm. The left kidney measures 12 cm. Kidneys are normal in echotexture. N o hydronephrosis. Right renal artery resistive index 0.81. Left renal artery resistive index 0.80. IMPRESSION: 1. No evidence of renal artery stenosis. 2. Mildly elevated bilateral renal artery resistive indices, may indicate medical renal disease. Electronically signed by: Pantera Fuentes DO (07/25/2020 3:40 PM) [id number]
--- NOTE | 2020-07-25 16:19 | NUR ---
Contacted Dr Cedeño about decreasing blood pressure. Also informed him of patient c/o throbbing constant headache on left side of head and into left jaw. medication and ice pack did not seem to resolve it. Physician ordered for a repeat EKG, redraw troponin and to consult Dr Martinez-neurology. TRISHA. Lenin CULLEN
--- NOTE | 2020-07-25 16:56 | EKG ---
[address] [address] Test Date: 2020-07-25 Test Time: 16:52:41 Pat Name: ENMA RAMEY Department: Room: [facility] 1 Gender: F Rag Washer: : 1970 Requested By: SUKH LRIIANO Order Number: [id number] Reading MD: Measurements Intervals [place] Rate: 58 P: 38 MD: 168 QRS: 27 QRSD: 84 T: 43 QT: 474 QTc: 469 Interpretive Statements SINUS RHYTHM QRS(T) CONTOUR ABNORMALITY CONSIDER ANTEROLATERAL MYOCARDIAL DAMAGE POSSIBLY ABNORMAL ECG RI6.01 No previous ECG available for comparison
[2020-07-25] MEDS ORDERED: BUTALB/APAP/CAFEIN 50/325/40MG TABLET. PO PRN (20:00)
[2020-07-25] MEDS ORDERED: METOPROLOL TART IMMED RELEASE 25 MG TABLET. PO SCH (21:00)
[2020-07-25] MEDS ORDERED: TOPIRAMATE 25 MG TABLET. PO ONE (21:15)
[2020-07-25 22:09] LABS: HEMOGLOBIN A1C 6.1 % (4.8-5.6)
--- NOTE | 2020-07-25 22:13 | NUR ---
1926 pt c/o headache pain 9:10 left side of head, morphine given as ordered (this was what had been given during day for pt's pain, when reassessed pt's pain level was still 7:10. Called Dr. Cedeño for orders. 2013 pt's pain still 7:10, pt given fioricet as ordered, when reassessed pt's pain level now 4:[address] Martinez to check on pt, provided physician with update as stated above. Dr. Martinez ordered topamax bid. 2117 Pt given topamax as ordered and when reassessed pt's pain level now 2:10. Pt states she is much more comfortable. Addendum: 07/26/20 at 0536 by SUSY LAWTON RN 07/26 0130 pt's pain at 0:10. However, pt was lying flat in the bed and desating to 70's intermittently (possibly sleep apnea as pt states she does gasp and snore during sleep. HOB elevated and pt no longer desated during HS.
--- NOTE | 2020-07-25 22:40 | CONS ---
DATE OF CONSULTATION: 07/25/2020 NEUROLOGY CONSULTATION REFERRING PHYSICIAN: Dr. Cedeño. REASON FOR CONSULTATION: Severe headaches. HISTORY OF PRESENT ILLNESS: This is a 49-year-old right-handed female who was admitted through Emergency Room after she presented with severe left headaches, was reported severe hypertension recorded at home 7 hours prior to the admission at 272/134. She denies nausea, vomiting, but she had chest tightness. The patient stated that headache started 4 days ago, but has been progressive gradually and becomes very severe and described as the worst headache in her life. Seventy hours prior to the admission, she complains of chest tightness associated with left-sided jaw pain, began 7 hours prior to this admission. The patient described radicular chest pain radiating into the left shoulder. On arrival to the Emergency Room, her headache was 260/130. The patient was started on nicardipine protocol and the severe headache improve gradually. The patient has been on multiple antihypertensive agents, but probably she is not taking it correctly. She denies nausea, vomiting, vertigo, dysarthria, dysphagia, weakness or paresthesia. The patient has been in extreme stress at work in the last few days. She has had history of coronary artery disease and she was on Brilinta for approximately 1 year. She had a cardiac catheterization, which revealed severe stenosis in the LAD artery, required 1 stent placement. After the patient started on her home medications with lisinopril, amlodipine, and intravenous hydralazine, her blood pressure has been gradually improving. Initial head CT scan revealed no evidence of acute intracranial process. The headache has gradually improved. The patient denies any recent head injury or fall. She denies any other neurological complaints. PAST MEDICAL HISTORY: Significant for coronary artery disease, history of migraine headaches, hypertension, hyperlipidemia, stroke, TIA, chronic low back pain, hypothyroidism. PAST SURGICAL HISTORY: Positive for coronary stent placement in LAD, tubal ligation, , cervical spine fusion. FAMILY HISTORY: Strongly positive for coronary artery disease. SOCIAL HISTORY: The patient is . She denies smoking, alcohol drinking, or illicit drug use. CURRENT MEDICATIONS: Amlodipine 5 mg daily, aspirin 81 mg daily, lisinopril 20 mg daily, metoprolol 12.5 mg b.i.d., hydralazine 10 mg IV p.r.n. for hypertension, insulin Humalog on sliding scales, morphine sulfate 2 mg q. 2 hours p.r.n. for severe headaches, Zofran 4 mg IV p.r.n. for nausea. PHYSICAL EXAMINATION: GENERAL: Obese female, not in acute distress. She weighs 109.2 kilos. VITAL SIGNS: Blood pressure 129/69, respiratory rate 14, pulse is 76 and regular, temperature is 98.3, oxygen saturation 95% on room air. HEENT: Normocephalic, atraumatic, otherwise unremarkable. NECK: Supple. Negative for carotid bruit, lymphadenopathy or thyromegaly. LUNGS: Clear to A and P. CARDIOVASCULAR: Regular rate and rhythm. Normal S1, S2. There is no S3, S4 or murmur. ABDOMEN: Soft. Bowel sounds positive. EXTREMITIES: Negative for cyanosis, clubbing or edema. NEUROLOGICAL: Mental status: The patient is alert and oriented x 3. Speech is fluent. There is no language dysfunction. Memory, judgment, and abstracting thinking are normal. The patient denies hallucination or delusion. CRANIAL NERVES: Visual randolph are full. The pupils are reactive to light and accommodation. The extraocular movements are intact. There is no nystagmus. There is no facial motor or sensory deficit. Hearing is intact bilaterally. The palate is elevated symmetrically. Sternocleidomastoid muscles are powerful bilaterally. The patient shrugs her shoulders symmetrically, protrudes her tongue in the midline without fasciculation or atrophy. MOTOR EXAMINATION: No focal muscle bulk was seen. The tone is normal. The strength is 5/5 throughout. SENSORY EXAMINATION: Revealed normal pinprick, light touch, vibratory and position senses. Deep tendon reflexes were asymmetric and hypoactive without pathology responses. Gait not tested. DIAGNOSTIC DATA: Renal artery duplex revealed no evidence of renal artery stenosis. CT of the neck and head revealed no significant internal carotid stenosis. No evidence of acute intracranial hemorrhage or aneurysm or vascular malformation. Mild intracranial atherosclerotic changes that involve the left vertebral artery and basilar artery. EKG revealed no evidence of acute changes or STEMI. LABORATORY DATA: CBC revealed white blood cells of 7300, hemoglobin 16.1, hematocrit 49.2, platelet count 235,000. Chemistry: Sodium of 137, potassium 4, chloride 100, CO2 of 28, BUN 12, creatinine 1, glucose 160. Lactic acid is high at 2.1, calcium 8.8. Troponin level is 0.018. Liver enzymes are normal. Lipid profile revealed hypercholesterolemia and high cholesterol at 275 with high LDL at 210 with normal HDL at 50. Coagulation is normal. Urinalysis is negative for urinary tract infections. Urine drug screen is negative as well. IMPRESSION: 1. Emergency hypertension -- improved. 2. Multiple medical problems includes hyperlipidemia, coronary artery disease, status post coronary stent placement, hypothyroidism, history of migraine headaches. RECOMMENDATIONS: Continue with current management initiated by Dr. Cedeño for throbbing left-sided headaches. We will start the patient on topiramate at 25 mg b.i.d. We will avoid triptan as the patient has had severe hypertension and coronary artery disease. M Og SARMIENTO MD DR: GENE/claudio JOB#: [id number] / [id number]
[2020-07-26] VITALS (9 sets, daily range): BP systolic 102–131; BP diastolic 53–66
[2020-07-26] MEDS: INSULIN LISPRO 300 UNITS/3 ML VIAL. SQ SCH (08:00)
--- NOTE | 2020-07-26 08:43 | PDOC2 ---
CARDIAC CONSULT DATE OF CONSULT DOS: DATE: 07/26/20 TIME: 08:37 REASON FOR CONSULT Reason for Consult Hypertensive Urgency REFERRING PHYSICIAN Referring Physician Dr. Cedeño SOURCE Source: Chart review, Patient HPI History of Present Illness This is a 49 yo female who presented secondary to headache, elevated blood pressure, and pressure in her left jaw. Blood pressure 272/134 at home, which prompted her to come in for evaluation. Patient she began having pain in her left jaw 2 days ago. [place] like a tooth ache and she has a tooth that needs to be pulled. Used Orajel without any significant relief. Began having severe throbbing in the left side of her head and could fell her heart beating in her left chest. Denies any specific chest pain. Also had some pressure in her left neck. Jaw pain continued to be intense so she took her blood pressure and was noted to be significantly elevated. Report compliance with lisinopril, ASA, and metoprolol. Only take metoprolol Came to the ED for further evaluation and treatment. Blood pressure well controlled this morning following increase in medical therapy and symptoms have resolved. Denies any shortness of breath, dizziness, diaphoresis, or nausea/vomiting. Does have a history of CAD s/p PCI/JOSSY to the LAD 06/14. Completed 12 months of ASA/Brilinta therapy. Follows with Dr. Fish, with [facility]. PAST MEDICAL HISTORY Cardiovascular: AFIB, CAD, HTN, hyperipidemia Endocrine: Hypothyroidism PAST SURGICAL HISTORY Past Surgical History: Tubal Ligation, Other (cervical fusion ) FAMILY HISTORY Family History: Diabetes, Heart Disease, Hypertension SOCIAL HISTORY Smoke: No ALCOHOL: none Drugs: None Lives: with Family CURRENT MEDICATIONS Current Medications Current Medications Aspirin (Aspirin Chewable) 324 mg 1X ONCE PO Last administered on 07/25/20at 04:27; Start 07/25/20 at 04:15; Stop 07/25/20 at 04:52; Status DC Nitroglycerin/ Dextrose 250 ml @ 0 mls/hr 1X ONCE IV ; Start 07/25/20 at 04:15; Stop 07/25/20 at 04:20; Status DC Labetalol HCl (Normodyne) 20 mg 1X ONCE IVP Last administered on 07/25/20at 04:28; Start 07/25/20 at 04:30; Stop 07/25/20 at 04:52; Status DC Labetalol HCl (Normodyne) 20 mg 1X ONCE IVP ; Start 07/25/20 at 05:00; Stop 07/25/20 at 05:04; Status DC Morphine Sulfate (Morphine 4mg Syringe) 4 mg 1X ONCE IV Last administered on 07/25/20at 05:07; Start 07/25/20 at 05:00; Stop 07/25/20 at 05:07; Status DC Iohexol (Omnipaque 350 Mg/ml) 100 ml 1X ONCE IV Last administered on 07/25/20at 05:15; Start 07/25/20 at 05:15; Stop 07/25/20 at 05:16; Status DC Info (Do NOT chart on this entry -- for MONITORING) 1 each PRN DAILY PRN MC SEE COMMENTS; Start 07/25/20 at 05:15; Stop 07/27/20 at 05:14 Nicardipine HCl 50 mg/Sodium Chloride 270 ml @ 27 mls/hr CONT PRN IV SEE I/O RECORD; Start 07/25/20 at 06:00 Acetaminophen (Tylenol) 650 mg PRN Q4HRS PRN PO FEVER > 100.3'F; Start 07/25/20 at 06:00; Stop 07/25/20 at 08:07; Status DC Acetaminophen (Tylenol) 650 mg PRN Q6HRS PRN PO MILD PAIN / TEMP > 100.3'F Last administered on 07/25/20at 16:06; Start 07/25/20 at 08:15 Ondansetron HCl (Zofran) 4 mg PRN Q6HRS PRN IVP NAUSEA/VOMITING; Start 07/25/20 at 08:15 Aspirin (Aspirin Chewable) 81 mg DAILY PO ; Start 07/26/20 at 09:00 Lisinopril (Prinivil) 5 mg DAILY PO ; Start 07/26/20 at 09:00; Stop 07/25/20 at 14:37; Status DC Metoprolol Tartrate (Lopressor) 12.5 mg BID PO Last administered on 07/25/20at 20:15; Start 07/25/20 at 21:00 Insulin Human Lispro (HumaLOG) 0-9 UNITS TIDWMEALS SQ ; Start 07/25/20 at 12:00 Dextrose (Dextrose 50%-Water Syringe) 12.5 gm PRN Q15MIN PRN IV SEE COMMENTS; Start 07/25/20 at 10:45 Nifedipine (Procardia Xl) 60 mg 1X ONCE PO Last administered on 07/25/20at 11:46; Start 07/25/20 at 11:30; Stop 07/25/20 at 11:36; Status DC Morphine Sulfate (Morphine 2mg Syringe) 2 mg PRN Q2HR PRN IV PAIN Last administered on 07/25/20at 19:27; Start 07/25/20 at 11:30 Hydralazine HCl (Apresoline) 10 mg PRN Q4HRS PRN IV ELEVATED BP, SEE COMMENTS Last administered on 07/25/20at 15:17; Start 07/25/20 at 14:15 Lisinopril (Prinivil) 20 mg DAILY PO ; Start 07/26/20 at 09:00 Lisinopril (Prinivil) 20 mg 1X ONCE PO Last administered on 07/25/20at 14:48; Start 07/25/20 at 14:45; Stop 07/25/20 at 14:46; Status DC Amlodipine Besylate (Norvasc) 5 mg DAILY PO ; Start 07/26/20 at 09:00 Acetaminophen/ Butalbital/ Caffeine (Fioricet) 1 tab PRN Q6HRS PRN PO MIGRAINE HEADACHE Last administered on 07/25/20at 20:14; Start 07/25/20 at 20:00 Topiramate (Topamax) 25 mg BID ONCE PO Last administered on 07/25/20at 21:18; Start 07/25/20 at 21:15; Stop 07/25/20 at 21:16; Status DC Topiramate (Topamax) 25 mg BID PO ; Start 07/26/20 at 09:00 Active Scripts Active Metoprolol Tartrate 25 Mg Tablet 12.5 Mg PO BID 30 Days Reported Aspirin 81 Mg Tab.chew 81 Mg PO DAILY Lisinopril 5 Mg Tablet 1 Tab PO DAILY ALLERGIES Allergies: Coded Allergies: No Known Drug Allergies (Unverified , 10/30/14) ROS Review of Systems 14 point ROS conducted with pertinent positives noted above in HPI PHYSICAL EXAM General: Alert, Oriented X3, Cooperative, No acute distress HEENT: Atraumatic, Mucous membr. moist/pink Lungs: Clear to auscultation Heart: Regular rate Abdomen: Soft, No tenderness, No hepatospenomegaly Extremities: No edema, Normal pulses Neuro: Normal speech, Sensation intact Psych/Mental Status: Mental status NL, Mood NL MUSCULOSKELETAL: Osteoarthritic changes both hands VITALS Vital Signs Vital Signs Date Time Temp Pulse Resp B/P (MAP) Pulse Ox O2 Delivery O2 Flow Rate FiO2 07/26/20 06:00 61 13 126/64 (84) 96 Room Air 07/26/20 05:00 97.8 LABS LABS Laboratory Tests Test 07/25/20 04:05 07/25/20 07:45 07/25/20 10:43 07/25/20 15:57 White Blood Count 7.3 x10^3/uL (4.0-11.0) Red Blood Count 5.93 x10^6/uL (3.50-5.40) Hemoglobin 16.1 g/dL (12.0-15.5) Hematocrit 49.2 % (36.0-47.0) Mean Corpuscular Volume 83 fL (79-100) Mean Corpuscular Hemoglobin 27 pg (25-35) Mean Corpuscular Hemoglobin Concent 33 g/dL (31-37) Red Cell Distribution Width 14.1 % (11.5-14.5) Platelet Count 235 x10^3/uL (140-400) Neutrophils (%) (Auto) 74 % (31-73) Lymphocytes (%) (Auto) 18 % (24-48) Monocytes (%) (Auto) 6 % (0-9) Eosinophils (%) (Auto) 1 % (0-3) Basophils (%) (Auto) 1 % (0-3) Neutrophils # (Auto) 5.4 x10^3uL (1.8-7.7) Lymphocytes # (Auto) 1.3 x10^3/uL (1.0-4.8) Monocytes # (Auto) 0.4 x10^3/uL (0.0-1.1) Eosinophils # (Auto) 0.1 x10^3/uL (0.0-0.7) Basophils # (Auto) 0.0 x10^3/uL (0.0-0.2) Sodium Level 137 mmol/L (136-145) Potassium Level 4.0 mmol/L (3.5-5.1) Chloride Level 100 mmol/L (98-107) Carbon Dioxide Level 28 mmol/L (21-32) Anion Gap 9 (6-14) Blood Urea Nitrogen 12 mg/dL (7-20) Creatinine 1.0 mg/dL (0.6-1.0) Estimated GFR (Cockcroft-Gault) 59.2 BUN/Creatinine Ratio 12 (6-20) Glucose Level 160 mg/dL (70-99) Hemoglobin A1c 6.1 % (4.8-5.6) Calcium Level 8.8 mg/dL (8.5-10.1) Total Bilirubin 0.6 mg/dL (0.2-1.0) Aspartate Amino Transf (AST/SGOT) 30 U/L (15-37) Alanine Aminotransferase (ALT/SGPT) 48 U/L (14-59) Alkaline Phosphatase 106 U/L (46-116) Troponin I Quantitative < 0.017 ng/mL (0-0.055) 0.031 ng/mL (0-0.055) 0.028 ng/mL (0-0.055) 0.018 ng/mL (0-0.055) BW-Ric-S-Type Natriuretic Peptide 79 pg/mL (0-124) Total Protein 8.1 g/dL (6.4-8.2) Albumin 4.0 g/dL (3.4-5.0) Albumin/Globulin Ratio 1.0 (1.0-1.7) Lipase 85 U/L (73-393) Cortisol AM Sample 18.25 ug/dL (4.3-22.4) Urine Opiates Screen Neg (NEG) Urine Methadone Screen Neg (NEG) Urine Barbiturates Neg (NEG) Urine Phencyclidine Screen Neg (NEG) Urine Amphetamine/Methamphetamine Neg (NEG) Urine Benzodiazepines Screen Neg (NEG) Urine Cocaine Screen Neg (NEG) Urine Cannabinoids Screen Neg (NEG) Urine Ethyl Alcohol Neg (NEG) Test 07/25/20 16:28 Glucose (Fingerstick) 133 mg/dL (70-99) ECHOCARDIOGRAM Echocardiogram <Conclusion> The left ventricular systolic function is normal and the ejection fraction is within normal range. The Ejection Fraction is 60-65%. There is normal LV segmental wall motion. DATE: 04/28/19 16306/15/19 - 2-D + DOPPLER ECHOCARDIOGRAM Interpretation Summary Normal LV cavity size with mild concentric LVH and normal systolic function, EF ~ 60-65% Diastolic function is technically indeterminate. No regional wall motion abnormalities. Normal right ventricle size and qualitative systolic function Normal size atria bilaterally No significant valvular disease Pulmonary systolic pressure could not be accurately estimated due to lack of significant tricuspid regurgitant signal No pericardial effusion Compared with the prior echo/Doppler study on 06-10-19, there have been no significant interval changes. HEART CATH Heart Cath CORONARY ANGIOGRAPHY: LM is a large caliber vessel with normal angiographic appearance. LAD is a large caliber vessel with normal angiographic appearance. D1 is a small caliber vessel with normal angiographic apeparance. LCx is a moderate caliber non-dominant vessel with normal angiographic appearance. OM1 is a moderate caliber vessel with normal angiographic appearance. RCA is a large caliber dominant vessel with normal angiographic appearance. RPDA and RPL are moderate caliber vessels with normal angiographic appearance. Conclusion 1. Normal left sided filling pressures. 2. Normal LVEDP. 3. Normal LV function. 4. Normal angiographic appearance of the coronary arteries. Recommendations Aggressive Medical Therapy DATE: 03/24/16 1410 [facility] at [place]: HEMODYNAMICS: Left ventricular pressure 138/EDP of 13 mmHg. Aortic pressure 125/72 mmHg. ANATOMY: Left main. The left main arose from the left coronary cusp. It had 10% narrowing in its mid course. It bifurcated into the left anterior descending and circumflex. Left anterior descending. The left anterior descending is a type 3 LAD. It has a proximal/mid 95% stenosis. This is very proximal in the artery, but there is a very small septal that arises before it. The mid LAD has diffuse 30% irregularities. The LAD supplies 3 medium-sized diagonals and other smaller d iagonals. These are all free of any significant disease. Circumflex. The circumflex appears to be normal, supplying a 1st large obtuse marginal which is normal, and then a terminal obtuse marginal which is unremarkable. Right coronary artery. The right coronary artery is dominant arising from the right coronary cusp. There is diffuse 30% irregularities throughout its course. It is dominant, supplying the posterior descending and the posterolateral arteries. The posterior descending has a 20% plaque. After intervention there was no significant residual stenosis in the LAD. CONTRAST: Isovue-370, 110 mL. RADIATION EXPOSURE: Fluoroscopy time 8.4 minutes with an air kerma total of 667 mGy. MEDICATIONS: Lidocaine 4 mL, Brilinta 180 mg, fentanyl 100 mcg in divided doses, heparin 6500 units in divided doses, nitroglycerin 200 mcg, normal saline 250 mL, verapamil 5 mg, and Versed bolus 2.5 mg in divided doses. CONCLUSIONS: Coronary artery disease with a severe/subtotal stenosis in the proximal/mid LAD. Successful intervention, placing a 3.0 by 12 mm drug-eluting stent postop with a 3.25 mm balloon. Mild diffuse disease elsewhere. Date: 06/10/2019 3:14 PM ASSESSMENT/PLAN Assessment/Plan 1. Hypertensive urgency; lisinopril increased. Now controlled 2. Headache, neck pressure; most probably secondary to above. resolved 3. CAD s/p PCI/JOSSY to the LAD 06/14. Follow with [facility], Dr. Fish 4. PAFIB; maintaining SR 5. Hyperlipidemia 6. H/o CVA 7. Hyperglycemia; A1C 6.1. as per PCP Recommendations Continue current antiHTN therapy Secondary prevention Continue ASA. add statin Convert metoprololto long-acting as she has difficulty splitting pills Outpatient echo and ischemic evaluation Given history of PAFIB and CVA, and [id number] of 5, recommend OAC with Eliquis. Discussed thoroughly with patient. Will defer to primary software tools build engineer Follow up with RADHA Peacock APRN Jul 26, 2020 08:43
[2020-07-26] MEDS ORDERED: ASPIRIN CHEWABLE 81 MG TABLET. PO SCH (09:00)
[2020-07-26] MEDS ORDERED: LISINOPRIL 5 MG TABLET. PO SCH (09:00)
[2020-07-26] MEDS ORDERED: TOPIRAMATE 25 MG TABLET. PO SCH (09:00)
[2020-07-26] MEDS ORDERED: LISINOPRIL 20 MG TABLET PO SCH (09:00)
[2020-07-26] MEDS ORDERED: amLODIPine BESYLATE 5 MG TABLET PO SCH (09:00)
--- NOTE | 2020-07-26 09:07 | PN ---
DATE: SUBJECTIVE: The patient denies any new medical or neurological complaints. She stated her headache has completely resolved. OBJECTIVE: GENERAL: Obese female, not in acute distress. VITAL SIGNS: Blood pressure 126/64, respiratory rate 13, pulse is 61 and regular, temperature 97.8, oxygen saturation 96% on room air. HEENT: Normocephalic, atraumatic, otherwise unremarkable. NECK: Supple. Negative for carotid bruit, lymphadenopathy or thyromegaly. LUNGS: Clear to A and P. CARDIOVASCULAR: Regular rate and rhythm, normal S1, S2. There is no S3, S4 or murmur. ABDOMEN: Soft. Bowel sounds positive. EXTREMITIES: Negative for cyanosis, clubbing or edema. NEUROLOGICAL EXAM: Normal mental status and intact cranial nerves. There is no focal motor or sensory deficit. Deep tendon reflexes were symmetric and hypoactive with absent Achilles responses. Gait not tested. IMPRESSION: 1. Severe left-sided headaches - resolved. 2. Emergency hypertension - improved. 3. Multiple medical problems include history of migraine headaches, coronary artery disease, hypertension, hypothyroidism, and hyperlipidemia. RECOMMENDATIONS: 1. Continue with current management initiated by Dr. Cedeño. 2. Continue with topiramate 25 mg twice daily. 3. Follow up with Dr. Martinez after 2 weeks from discharge. M Og MARTINEZ MD DR: GENE/claudio JOB#: [id number] / [id number]
--- NOTE | 2020-07-26 09:40 | HP ---
ADMIT DATE: 07/25/2020 HISTORY OF PRESENT ILLNESS: A 49-year-old female came in with severe headache and pain to the left side of her head. The patient in turn was noted to have extremely elevated blood pressures ranging in the neighborhood of approximately 260/130, pulse 74, respiratory rate 22, afebrile. The patient has been consulted with Cardiology. The patient denied any chest pain per se; however, the patient was given nicardipine in the Emergency Room to bring down that blood pressure to a more reasonable range. She is in the ICU for close monitoring as her blood pressure started to go back up. She is restarted on her home medications and keeping monitors with hydralazine IV as well as nicardipine drip on standby to bring down the blood pressure. Cardiology has been consulted and they made their suggestions. PAST MEDICAL HISTORY: She has had a history of a stroke in the past, TIA, cervical fusion, headache, numbness, cardiac disorder symptoms, coronary stent placement in the LAD negative 2 years ago, hypercholesterolemia, hypertensive urgency, tubal ligation, , musculoskeletal disorders, orthopedic surgery, neck fusion, back pain, hypothyroidism, influenza vaccine up-to-date. MEDICATIONS: Include that of ____ metoprolol 12.5 mg b.i.d., lisinopril 5, aspirin 81. ALLERGIES: No known drug allergies. FAMILY HISTORY: Strong family history for heart disease and diabetes, otherwise unremarkable. SOCIAL HISTORY: No smoking, alcohol or drug use. She is a full code. REVIEW OF SYSTEMS: Outside of the severe pain that goes up into the left side of her head, neck and down her arm, the patient denies chest pain, shortness of breath. Denies any visual changes. Denies any melena, hematochezia or hematemesis. Neurologically intact. The patient otherwise seems to be stable. PHYSICAL EXAMINATION: VITAL SIGNS: The patient's blood pressure presently 144/64, respiratory rate 14, pulse 60, afebrile. NEUROLOGIC: The patient is alert and oriented. LUNGS: Diminished, but basically clear. CARDIOVASCULAR: Regular sinus rhythm. ABDOMEN: Soft, nontender, no rebound or guarding. Positive bowel sounds, no hepatosplenomegaly was noted. EXTREMITIES: No clubbing, cyanosis, or edema. NEUROLOGIC: The patient is alert and oriented x 3. LABORATORY DATA: Hemoglobin 16 and 49, white count 7. The patient's troponins have been basically stable coming down actually, ____ BUN and creatinine 12 and 1.0, blood sugar 133, A1c, ____ renal ultrasound pending. We will continue to monitor the patient accordingly. Her renal arterial duplex showed no evidence of renal artery stenosis, mild elevated bilateral renal artery ____ medical renal disease, however. The patient had a CTA of her carotid arteries and they were basically unremarkable, not showing any significant evidence of any hemodynamic blockage. The head CAT scan itself demonstrated no acute intracranial hemorrhage or other findings whatsoever. Chest x-ray was also noted to be unremarkable. EKG report pending. IMPRESSION: Hypertensive urgency, hyperglycemia, severe left-sided headache, carotid pain, carotidynia. The patient continued to be monitored carefully here in the ICU and make adjustments on her medications as indicated. Also consult with Neurology about this headache and what medications would be safe for her to be utilized on this situation. SUKH LIRIANO MD DR: DOMINICK/claudio JOB#: [id number] / [id number]
[2020-07-26] MEDS ORDERED: METO-239 PO (09:50)
[2020-07-26] MEDS ORDERED: APIX5TAB3 PO (09:50)
[2020-07-26] MEDS ORDERED: CRESTOR20 MG PO (09:50)
[2020-07-26] MEDS ORDERED: ICOS1CAP PO (09:50)
[2020-07-26] MEDS ORDERED: TOPI25TA52 PO (09:50)
[2020-07-26] MEDS ORDERED: METOPROLOL SUCC 24HR ER 25 MG TAB.ER.24H. PO SCH (11:15)
--- NOTE | 2020-07-26 12:30 | NUR ---
Discharge Note: [facility] 2 Discharge instructions and discharge home medications reviewed with Patient and a copy given. All questions have been answered and understanding verbalized. The following instructions and handouts were given: New medication information handouts Discontinued lines and drains: Peripheral IV line discontinued. No complications. Patient was discharged to home left the unit via ambulation with all personal belongings escorted by this RN patient was transported home by in private vehicle.
[2020-07-26] MEDS ORDERED: ATORVASTATIN CALCIUM 20 MG TABLET PO SCH (21:00)
--- NOTE | 2020-07-27 02:36 | DS ---
DATE OF DISCHARGE: 07/26/2020 HOSPITAL COURSE: A 49-year-old female initially came in through the Emergency Room. She was having severe hypertension. The patient noted her blood pressure to be approximately 270/130, pulse 74 and respiratory rate of 22. This patient had multiple risk factors including past stroke, TIAs, cervical fusion, headaches, numbness, cardiac disorders. The patient was admitted and given nicardipine as well as her home medications. This seemed to bring it down, but then ____ back up and had to be given additional medications to keep the blood pressure under control eventually with a combination of Procardia, Norvasc, lisinopril. The patient made good progress. Blood pressure 126/64 was her last blood pressure reading, pulse 60, afebrile. The patient was seen by Cardiology, who recommended the drug regimen. The patient's A1c was 6.1. Her a.m. cortisol was 18.25, but her cortisol p.m. level was 2.8. The patient made good progress. She felt much better. She had an extensive cardiac workup. Chest x-ray showed no problems there. She had a CT of the head, no acute problems noted. She had a neck CTA, both right and left foot showed no significant atherosclerotic changes, no significant stenosis in either carotid artery. No aneurysm was noted. Got a renal artery duplex, no evidence of renal artery stenosis; however, there was mildly elevated bilateral renal artery resistive indices may indicate medical renal disease. In any case, the patient made excellent progress. She was discharged home. IMPRESSION: Hypertensive urgency, type 2 diabetes, previous history of cerebrovascular accident. Dr. Martinez saw her for her severe headache on the left side, started on topiramate 25 mg b.i.d. Cardiology also reviewed the patient as indicated. She will be on a low sodium cardiac type diet, decreased activity. Recommended plenty of rest and she will return to clinic for followup for further testing and the like. Follow up with her retail service specialist, ____. SUKH LIRIANO MD DR: DOMINICK/claudio JOB#: [id number] / [id number]
[2020-07-27] MEDS ORDERED: METOPROLOL SUCC 24HR ER 25 MG TAB.ER.24H. PO SCH (09:00)
== END 2020-07-26 11:30 | disposition home or self-care (01) | DRG 305 ==
LOC: ER 03:37 → ICU 06:00
PROVIDERS: ADMIT Family Medicine; ATTEND Family Medicine
DX: I16.0 Hypertensive urgency (principal); E03.9 Hypothyroidism, unspecified; E11.65 Type 2 diabetes mellitus with hyperglycemia; E78.00 Pure hypercholesterolemia, unspecified; E78.5 Hyperlipidemia, unspecified; G90.01 Carotid sinus syncope; I10 Essential (primary) hypertension; I25.10 Atherosclerotic heart disease of native coronary artery without angina pectoris; I48.0 Paroxysmal atrial fibrillation; I67.2 Cerebral atherosclerosis; Z79.82 Long term (current) use of aspirin; Z82.49 Family history of ischemic heart disease and other diseases of the circulatory system; Z83.3 Family history of diabetes mellitus; Z86.73 Personal history of transient ischemic attack (TIA), and cerebral infarction without residual deficits; Z95.5 Presence of coronary angioplasty implant and graft; Z98.1 Arthrodesis status; G43.909 Migraine, unspecified, not intractable, without status migrainosus; G89.29 Other chronic pain
CPT/HCPCS: 36415; 70450; 70496; 70498; 71045; 76770; 80053; 80307; 82533; 82947; 83036; 83690; 83880; 84484; 85025; 93005; 96374; J0360; J1815; J2270; J3490; Q9967; 99291-25

== ENCOUNTER → 2020-09-04 | Outpatient (CLI) | payer BC, OTHER ==
[2020-07-26 11:27] VITALS: BP 126/64
[~2020-09-04] MED LIST changes: +ASPI-630 PO; +CRESTOR20 MG PO; +ICOS1CAP PO; -LISI-334 PO; +LISI-517 PO; +LISI20TA18 PO; +TOPI25TA52 PO
--- NOTE | 2020-09-05 06:19 | RAD ---
PQRS Compliance Statement: One or more of the following individualized dose reduction techniques were utilized for this examinat ion: 1. Automated exposure control 2. Adjustment of the mA and/or kV according to patient size 3. Use of iterative reconstruction technique CT abdomen/pelvis without contrast 09/04/2020 5:07 PM INDICATION: Hematuria COMPARISON: CT abdomen/pelvis 09/11/2014 TECHNIQUE: Multiple axial CT images of the abdomen and pelvis were obtained without intravenous contr ast. Coronal and sagittal reformats are provided. FINDINGS: Lung bases are clear. Heart size is within normal limits. Evaluation of solid abdominal viscera is li mited by lack of intravenous contrast. Liver, adrenal glands, pancreas and gallbladder are normal in appearance. Calcifications within spleen likely represent sequela prior granulomatous exposure. The abdominal aorta is normal in course and caliber. There are no pathologically enlarged lymph nodes in the abdomen and pelvis. There is no abdominal free fluid. There is no free intraperitoneal air. A ortocaval lymph nodes measure up to 5 mm by short axis. Mild colonic diverticulosis. Small and large bowel are normal in caliber. There is no evidence for bowel obstruction. There are no pericolonic inf lammatory changes. A normal, nondilated appendix is visualized without adjacent inflammatory changes. The kidneys are relatively symmetric in appearance. There is no suspicious renal mass within the herndon itations of a noncontrast examination. There is no hydronephrosis. There are no calculi within the ki dneys, ureters or urinary bladder. Uterus and adnexa are normal by CT. No suspicious osseous normalit y is identified. IMPRESSION: No evidence for obstructive uropathy. Electronically signed by: Holley Oneil MD (09/05/2020 6:17 AM) [facility]
== END ==
LOC: CT 17:04
PROVIDERS: ATTEND Family Medicine
DX: K57.30 Diverticulosis of large intestine without perforation or abscess without bleeding (principal); R31.9 Hematuria, unspecified
CPT/HCPCS: 74176

== ENCOUNTER 2021-09-09 11:12 | Observation (INO) | payer OTHER ==
[~2021-09-09] VITALS: Ht 170.2 cm; Wt 106.9 kg
[~2021-09-09 11:12] MED LIST changes: -CYCL-331 PO; +CYCL10TA19 PO; -LISI-517 PO; -LISI1TAB23 PO; +LISI1TAB35 PO; +LISI1TAB37 PO; +LISI5TAB15 PO; -PHEN15CA2 PO; +PHEN15CA6 PO; +ZOLP5TAB PO
[2021-09-09] MEDS ORDERED: NITROGLYCERIN SUBLINGUAL 0.4 MG BOTTLE OF 25. SL PRN ×2 (11:45→14:00)
[2021-09-09] MEDS ORDERED: ASPIRIN CHEWABLE 81 MG TABLET. PO ONE (11:45)
--- NOTE | 2021-09-09 11:45 | PHYS DOC ---
Past History Past Medical History: A-Fib, CAD, CVA, Hypertension, IA, Stroke (SILVINO STUART APRN) Past Surgical History: Angioplasty, , Tubal ligation, Other Additional Past Surgical Histo: cardiac stent in LAD (SILVINO STUART APRN) Smoking: Non-smoker Alcohol Use: None Drug Use: None (SILVINO STUART APRN) General Adult EDM: Chief Complaint: CHEST PAIN HPI: HPI: Patient is a 50-year-old female that presents today with chest pain and numbness in her extremities. Patient states her symptoms have been ongoing for the last 2 days she has had substernal chest pain with some numbness in her hands. Patient states that she was admitted approximately 1 month ago with a "stroke" in her left eye and she was seen at the [facility] where she was admitted for 3 days, she states that she was seen by cardiology at that time and had an echocardiogram done she does not know the results of this, she states that she was told she needed to take an aspirin her lisinopril, she was placed on atorvastatin at that time. Patient states she has a credentialing specialist at the [facility] has not seen them for a little over a year except for when in the hospital approximately 1 month ago. Patient states she had a cardiac cath 2 to 3 years ago for which she had a stent placed in her LAD at that time. Patient states that she was she checked her blood pressure this morning her blood pressure was systolically over 200 she called her primary care doctor's office they instructed her to take her clonidine for which she did but said she was having chest pain and they advised her to come to the emergency department. Patient states she has not taken any of her home medications at this time including her aspirin. (SILVINO STUART APRN) Review of Systems: Review of Systems: Constitutional: Denies fever or chills Eyes: Denies change in visual acuity HENT: Denies nasal congestion or sore throat Respiratory: Denies cough or shortness of breath Cardiovascular: Chest pain with exertional dyspnea GI: Denies abdominal pain, nausea, vomiting, bloody stools or diarrhea : Denies dysuria Musculoskeletal: Denies back pain or joint pain Integument: Denies rash Neurologic: Denies headache, focal weakness or sensory changes Endocrine: Denies polyuria or polydipsia Lymphatic: Denies swollen glands Psychiatric: Denies depression or anxiety (SILVINO STUART APRN) Current Medications: Current Meds: Current Medications Medications (Trade) Dose Ordered Sig/Chio Start Time Stop Time Status Last Admin Dose Admin Aspirin (Aspirin Chewable) 324 mg 1X ONCE 09/09/21 11:45 09/09/21 11:46 UNV Nitroglycerin (Nitrostat) 0.4 mg PRN Q5MIN PRN 09/09/21 11:45 09/10/21 11:44 UNV (SILVINO STUART APRN) Allergies: Allergies: Allergies Coded Allergies Type Severity Reaction Last Updated Verified No Known Drug Allergies 10/30/14 No (SILVINO STUART APRN) Physical Exam: PE: Constitutional: Well developed, well nourished, no acute distress, non-toxic appearance. [] HENT: Normocephalic, atraumatic, bilateral external ears normal, oropharynx moist, no oral exudates, nose normal. [] Eyes: PERRLA, EOMI, conjunctiva normal, no discharge. [] Neck: Normal range of motion, no tenderness, supple, no stridor. [] Cardiovascular:Heart rate regular rhythm, no murmur [] Lungs & Thorax: Bilateral breath sounds clear to auscultation [] Abdomen: Bowel sounds normal, soft, no tenderness, no masses, no pulsatile masses. [] Skin: Warm, dry, no erythema, no rash. [] Back: No tenderness, no CVA tenderness. [] Extremities: No tenderness, no cyanosis, no clubbing, ROM intact, 2+ pedal pulses with trace edema bilaterally Neurologic: Alert and oriented X 3, normal motor function, normal sensory function, no focal deficits noted. [] Psychologic: Affect normal, judgement normal, mood normal. [] (SILVINO STUART APRN) Current Patient Data: Labs: Laboratory Tests Test 09/09/21 11:30 09/09/21 11:50 09/09/21 12:09 09/09/21 12:50 White Blood Count 7.5 x10^3/uL Red Blood Count 5.10 x10^6/uL Hemoglobin 14.4 g/dL Hematocrit 43.1 % Mean Corpuscular Volume 85 fL Mean Corpuscular Hemoglobin 28 pg Mean Corpuscular Hemoglobin Concent 33 g/dL Red Cell Distribution Width 14.2 % Platelet Count 163 x10^3/uL Neutrophils (%) (Auto) 67 % Lymphocytes (%) (Auto) 27 % Monocytes (%) (Auto) 5 % Eosinophils (%) (Auto) 1 % Basophils (%) (Auto) 1 % Neutrophils # (Auto) 5.0 x10^3uL Lymphocytes # (Auto) 2.0 x10^3/uL Monocytes # (Auto) 0.3 x10^3/uL Eosinophils # (Auto) 0.1 x10^3/uL Basophils # (Auto) 0.1 x10^3/uL Troponin I High Sensitivity 11 ng/L Urine Collection Type Clean catch Urine Color Yellow Urine Clarity Clear Urine pH 6.0 Urine Specific [place] 1.025 Urine Protein Neg Urine Glucose (UA) Neg mg/dL Urine Ketones (Stick) Neg mg/dL Urine Blood Trace Urine Nitrite Neg Urine Bilirubin Neg Urine Urobilinogen Dipstick 0.2 mg/dL Urine Leukocyte Esterase Neg Urine RBC 1-2 /HPF Urine WBC 0 /HPF Urine Squamous Epithelial Cells Few /LPF Urine Bacteria 0 /HPF Bedside Urine HCG, Qualitative hcg negative Prothrombin Time 10.1 SEC Prothromb Time International Ratio 1.0 Activated Partial Thromboplast Time 25 SEC D-Dimer (Collette) 0.37 mg/L Sodium Level 138 mmol/L Potassium Level 4.0 mmol/L Chloride Level 103 mmol/L Carbon Dioxide Level 26 mmol/L Anion Gap 9 Blood Urea Nitrogen 8 mg/dL Creatinine 0.6 mg/dL Estimated GFR (Cockcroft-Gault) 106.3 BUN/Creatinine Ratio 13 Glucose Level 104 mg/dL Calcium Level 8.3 mg/dL Magnesium Level 2.1 mg/dL Total Bilirubin 0.3 mg/dL Aspartate Amino Transf (AST/SGOT) 21 U/L Alanine Aminotransferase (ALT/SGPT) 34 U/L Alkaline Phosphatase 100 U/L CR-Qpe-C-Type Natriuretic Peptide 145 pg/mL Total Protein 6.6 g/dL Albumin 3.1 g/dL Albumin/Globulin Ratio 0.9 Test 09/09/21 14:30 Troponin I High Sensitivity 69 ng/L Current Medications Medications (Trade) Dose Ordered Sig/Chio Route PRN Reason Start Time Stop Time Status Last Admin Dose Admin Nitroglycerin (Nitrostat) 0.4 mg PRN Q5MIN PRN SL CP RATING > 1/10 09/09/21 11:45 09/10/21 11:44 09/09/21 11:55 Aspirin (Aspirin Chewable) 324 mg 1X ONCE PO 09/09/21 11:45 09/09/21 11:46 DC 09/09/21 11:54 Aspirin (Aspirin Chewable) 81 mg STK-MED ONCE .ROUTE 09/09/21 11:47 09/09/21 11:47 DC Vital Signs: Vital Signs Date Time Temp Pulse Resp B/P (MAP) Pulse Ox O2 Delivery O2 Flow Rate FiO2 09/09/21 13:53 48 147/74 (98) 98 09/09/21 13:23 55 18 131/65 (87) 98 09/09/21 12:53 47 18 146/86 (106) 98 09/09/21 12:23 50 18 162/74 (103) 98 09/09/21 11:55 71 197/97 09/09/21 11:53 55 18 202/94 (130) 98 09/09/21 11:37 98.2 55 18 197/97 (130) 98 (SILVINO STUART SHIRT HEMMER) EKG: EKG: EKG done at [address] Wells at 1125 shows sinus rhythm at a rate of 53 with no ectopy with a HI interval of 156 ms with a QTC of 391 ms no STEMI [] (SILVINO STUART SHIRT HEMMER) Radiology/Procedures: Radiology/Procedures: REASON: chest pain PROCEDURE: PORTABLE CHEST 1V EXAM: Chest, single view. HISTORY: Chest pain. COMPARISON: 06/29/2021 FINDINGS: A frontal view of the chest is obtained. There is no infiltrate, pleural effusion or pneumothorax. The heart is normal in size. There is cervical spinal fusion is rotation. IMPRESSION: No acute pulmonary finding. Electronically signed by: Arianne Carrillo MD (09/09/2021 11:58 AM) [id number] [] (SILVINO STUART APRN) Heart Score: C/O Chest Pain: Yes HEART Score for Chest Pain: HEART Score for Chest Pain Response (Comments) Value History Moderately Suspicious 1 ECG Normal 0 Age < 45 0 Risk Factors >3 Risk Factors or Hx CAD 2 Troponin >1-<3x Normal Limit 1 Total 4 Risk Factors: Risk Factors: DM, Current or recent (<one month) smoker, HTN, HLP, family histo ry of CAD, obesity. Risk Scores: Score 0 - 3: 2.5% MACE over next 6 weeks - Discharge Home Score 4 - 6: 20.3% MACE over next 6 weeks - Admit for Clinical Observation Score 7 - 10: 72.7% MACE over next 6 weeks - Early Invasive Strategies (SILVINO STUART APRN) Course & Med Decision Making: Course & Med Decision Making Pertinent Labs and Imaging studies reviewed. (See chart for details) Reviewed radiological and laboratory results with Dr. Bang and due to patient's past medical history we did decide to admit the patient for trending troponin levels and for further evaluation by cardiology. I did speak to Nadia from the cardiology service and she will see the patient in consultation. Patient was informed of the plan for admitting and for drawing labs to trend her troponin is she is agreeable to the plan of care. (SILVINO STUART APRN) Dragon Disclaimer: Dragon Disclaimer: This electronic medical record was generated, in whole or in part, using a voice recognition dictation system. (SILVINO STUART APRN) Attending Co-Sign The patient was seen and interviewed as well as examined at the bedside. The chart was reviewed. The case was discussed. Agree with the plan of care. (LEE ANN WELLS DO) Departure Departure: Impression: Primary Impression: Chest pain Qualified Codes: R07.9 - Chest pain, unspecified Disposition: ADMITTED INPATIENT Admitting Physician: Sukh Liriano (SILVINO STUART APRN) Condition: STABLE Referrals: SUKH LIRIANO MD (PCP) SILVINO STUART APRN Sep 09, 2021 11:45 LEE ANN WELLS DO Sep 10, 2021 06:14
[2021-09-09] MEDS ORDERED: ASPIRIN CHEWABLE 81 MG TABLET. ONE (11:47)
--- NOTE | 2021-09-09 12:00 | RAD ---
EXAM: Chest, single view. HISTORY: Chest pain. COMPARISON: 06/29/2021 FINDINGS: A frontal view of the chest is obtained. There is no infiltrate, pleural effusion or pneumo thorax. The heart is normal in size. There is cervical spinal fusion is rotation. IMPRESSION: No acute pulmonary finding. Electronically signed by: Arianne Carrillo MD (09/09/2021 11:58 AM) [id number]
[2021-09-09 12:11] LABS: BASO # 0.1 x10^3/uL (0.0-0.2); BASO % 1 % (0-3); EOS # 0.1 x10^3/uL (0.0-0.7); EOS % 1 % (0-3); HEMATOCRIT 43.1 % (36.0-47.0); HEMOGLOBIN 14.4 g/dL (12.0-15.5); LYMPH % 27 % (24-48); MEAN CORPUSCULAR HEMOGLOBIN 28 pg (25-35); MEAN CORPUSCULAR HGB CONC 33 g/dL (31-37); MEAN CORPUSCULAR VOLUME 85 fL (79-100); MONO # 0.3 x10^3/uL (0.0-1.1); MONO % 5 % (0-9); NEUT % 67 % (31-73); PLATELET COUNT 163 x10^3/uL (140-400); RED CELL DISTRIBUTION WIDTH 14.2 % (11.5-14.5); WHITE BLOOD COUNT 7.5 x10^3/uL (4.0-11.0)
[2021-09-09 12:49] LABS: BACTERIA,URINE 0 /HPF (0-FEW); CLARITY,URINE CLEAR; COLOR,URINE YELLOW; GLUCOSE,URINE NEG (NEG); NITRITE,URINE NEG (NEG); SQUAMOUS EPITHELIAL CELL,UR FEW /LPF; UROBILINOGEN,URINE 0.2 mg/dL (0.2 mg/dL); WBC,URINE 0 /HPF (0-4)
[2021-09-09 13:25] LABS: CALCIUM 8.3 mg/dL (8.5-10.1); CREATININE 0.6 mg/dL (0.6-1.0); GFR 106.3
[2021-09-09 13:37] LABS: ALBUMIN 3.1 g/dL (3.4-5.0); ALBUMIN/GLOBULIN RATIO 0.9 (1.0-1.7); MAGNESIUM 2.1 mg/dL (1.8-2.4); TOTAL BILIRUBIN 0.3 mg/dL (0.2-1.0); TOTAL PROTEIN 6.6 g/dL (6.4-8.2)
[2021-09-09] MEDS ORDERED: cloNIDine HCL 0.1 MG TABLET PO PRN (14:00)
[2021-09-09] MEDS ORDERED: MORPHINE SULFATE 2 MG/ML DISP.SYRIN. IVP PRN (14:00)
[2021-09-09 16:57] VITALS: BP 178/82
[2021-09-09] MEDS ORDERED: CLON0.1T PO (18:36)
[2021-09-09] MEDS ORDERED: ATORVASTATIN CA80 MG PO (18:36)
[2021-09-09] MEDS ORDERED: LISI1TAB35 PO (18:36)
--- NOTE | 2021-09-09 20:00 | EKG ---
[address] [address] Test Date: 2021-09-09 Test Time: 11:21:22 Pat Name: ENMA RAMEY Department: Room: 121 A Gender: F Base Remover: DIXON : 1970 Requested By: SILVINO STUART Order Number: [id number] Reading MD: Jona Castillo Measurements Intervals [place] Rate: 53 P: 38 UT: 156 QRS: 31 QRSD: 80 T: 61 QT: 414 QTc: 391 Interpretive Statements SINUS RHYTHM T ABNORMALITY IN HIGH LATERAL LEADS Electronically Signed On 09-10-2021 19:28:54 FULLER BRUSH WORKER by Jona Castillo
[2021-09-09] MEDS: cloNIDine HCL 0.1 MG TABLET PO PRN (20:30)
[2021-09-09 20:57] VITALS: BP 160/85
[2021-09-09] MEDS ORDERED: ATORVASTATIN CALCIUM 20 MG TABLET PO SCH ×2 (21:00)
[2021-09-10 00:30] VITALS: BP 134/78
--- NOTE | 2021-09-10 05:44 | EKG ---
[address] [address] Test Date: 2021-09-10 Test Time: 05:34:51 Pat Name: ENMA RAMEY Department: Room: 121 A Gender: F Multimedia Technician: : 1970 Requested By: SUKH LIRIANO Order Number: [id number] Reading MD: Jona Castillo Measurements Intervals [place] Rate: 44 P: [place]: QRS: 33 QRSD: 76 T: 44 QT: 476 QTc: 410 Interpretive Statements SINUS RHYTHM Electronically Signed On 09-11-2021 20:02:17 DINING ROOM SERVER by Jona Castillo
[2021-09-10] MEDS: cloNIDine HCL 0.1 MG TABLET PO PRN (06:27)
[2021-09-10 06:40] VITALS: BP 162/87
[2021-09-10 08:09] VITALS: BP 162/87
--- NOTE | 2021-09-10 08:39 | PDOC2 ---
CARDIAC CONSULT DATE OF CONSULT DOS: DATE: 09/10/21 TIME: 08:32 REASON FOR CONSULT Reason for Consult Chest pain REFERRING PHYSICIAN Referring Physician Pratima Lawler APRN SOURCE Source: Chart review, Patient HPI History of Present Illness This is a 50 yo female who presented secondary to chest pain. Patient reports she was walking between buildings at work and began having pressure in her central chest. Has tingling down both arms. Stop and rested for a minute. Continued to have pressure so she left work to go home. Checked he blood pressure at home and SBP was 250 range. Called PCP when recommended her to go to the ED for further evaluation and treatment. No dizziness, diaphoresis, palpitations, or nausea/vomiting. Feels much better this morning and has not further pain. PAST MEDICAL HISTORY Cardiovascular: AFIB, CAD, HTN, hyperipidemia CENTRAL NERVOUS SYSTEM: CVA Endocrine: Hypothyroidism PAST SURGICAL HISTORY Past Surgical History: Tubal Ligation, Other (cervical fusion ) FAMILY HISTORY Family History: Diabetes, Heart Disease, Hypertension SOCIAL HISTORY Smoke: No ALCOHOL: none Drugs: None Lives: with Family CURRENT MEDICATIONS Current Medications Current Medications Nitroglycerin (Nitrostat) 0.4 mg PRN Q5MIN PRN SL CP RATING > 1/10 Last administered on 09/09/21at 11:55; Start 09/09/21 at 11:45; Stop 09/10/21 at 11:44 Aspirin (Aspirin Chewable) 324 mg 1X ONCE PO Last administered on 09/09/21at 11:54; Start 09/09/21 at 11:45; Stop 09/09/21 at 11:46; Status DC Aspirin (Aspirin Chewable) 81 mg STK-MED ONCE .ROUTE ; Start 09/09/21 at 11:47; Stop 09/09/21 at 11:47; Status DC Morphine Sulfate (Morphine 2mg Syringe) 2 mg PRN Q2HR PRN IVP PAIN; Start 09/09/21 at 14:00; Stop 09/10/21 at 13:59 Nitroglycerin (Nitrostat) 0.4 mg PRN Q5MIN PRN SL CHEST PAIN; Start 09/09/21 at 14:00; Stop 09/10/21 at 13:59; Status UNV Aspirin (Lindsey Aspirin) 325 mg DAILY PO ; Start 09/10/21 at 09:00; Status Cancel Lisinopril (Prinivil) 20 mg DAILY PO ; Start 09/10/21 at 09:00; Status Cancel Clonidine HCl (Catapres) 0.1 mg PRN BID PRN PO HYPERTENSION; Start 09/09/21 at 14:00; Status Cancel Atorvastatin Calcium (Lipitor) 80 mg QHS PO ; Start 09/09/21 at 21:00; Status Cancel Aspirin (Aspirin Chewable) 81 mg DAILY PO Last administered on 09/10/21at 08:08; Start 09/10/21 at 09:00 Clonidine HCl (Catapres) 0.1 mg TID PRN PRN PO HYPERTENSION Last administered on 09/10/21at 06:27; Start 09/09/21 at 19:00 Atorvastatin Calcium (Lipitor) 80 mg QHS PO Last administered on 09/09/21at 20:29; Start 09/09/21 at 21:00 Lisinopril (Prinivil) 10 mg DAILY PO Last administered on 09/10/21at 08:09; Start 09/10/21 at 09:00 Hydrochlorothiazide (Microzide) 12.5 mg DAILY PO Last administered on 09/10/21at 08:08; Start 09/10/21 at 09:00 Active Scripts Active Reported Lisinopril-Hctz 10-12.5 Mg Tab (Lisinopril/Hydrochlorothiazide) 1 Each Tablet 1 Tab PO DAILY Clonidine Hcl 0.1 Mg Tablet 0.1 Mg PO TID PRN PRN Atorvastatin Calcium 80 Mg Tablet 80 Mg PO QHS Aspirin 81 Mg Tab.chew 81 Mg PO DAILY ALLERGIES Allergies: Coded Allergies: No Known Drug Allergies (Unverified , 10/30/14) ROS Review of Systems 14 point ROS conducted with pertinent positives noted above in hPI PHYSICAL EXAM General: Alert, Oriented X3, Cooperative, No acute distress HEENT: Atraumatic, Mucous membr. moist/pink Lungs: Clear to auscultation Heart: Regular rate Abdomen: Soft, No tenderness Extremities: No edema, Normal pulses Skin: No breakdown Neuro: Normal speech, Normal tone, Sensation intact Psych/Mental Status: Mental status NL, Mood NL MUSCULOSKELETAL: Abnormal exam of right VITALS Vital Signs Vital Signs Date Time Temp Pulse Resp B/P (MAP) Pulse Ox O2 Delivery O2 Flow Rate FiO2 09/10/21 08:09 45 162/87 09/10/21 06:40 97.3 18 98 Room Air LABS LABS Laboratory Tests Test 09/09/21 11:30 09/09/21 11:50 09/09/21 12:09 09/09/21 12:50 White Blood Count 7.5 x10^3/uL (4.0-11.0) Red Blood Count 5.10 x10^6/uL (3.50-5.40) Hemoglobin 14.4 g/dL (12.0-15.5) Hematocrit 43.1 % (36.0-47.0) Mean Corpuscular Volume 85 fL (79-100) Mean Corpuscular Hemoglobin 28 pg (25-35) Mean Corpuscular Hemoglobin Concent 33 g/dL (31-37) Red Cell Distribution Width 14.2 % (11.5-14.5) Platelet Count 163 x10^3/uL (140-400) Neutrophils (%) (Auto) 67 % (31-73) Lymphocytes (%) (Auto) 27 % (24-48) Monocytes (%) (Auto) 5 % (0-9) Eosinophils (%) (Auto) 1 % (0-3) Basophils (%) (Auto) 1 % (0-3) Neutrophils # (Auto) 5.0 x10^3uL (1.8-7.7) Lymphocytes # (Auto) 2.0 x10^3/uL (1.0-4.8) Monocytes # (Auto) 0.3 x10^3/uL (0.0-1.1) Eosinophils # (Auto) 0.1 x10^3/uL (0.0-0.7) Basophils # (Auto) 0.1 x10^3/uL (0.0-0.2) Troponin I High Sensitivity 11 ng/L (4-50) Urine Collection Type Clean catch Urine Color Yellow Urine Clarity Clear Urine pH 6.0 Urine Specific [place] 1.025 Urine Protein Neg (NEG-TRACE) Urine Glucose (UA) Neg mg/dL (NEG) Urine Ketones (Stick) Neg mg/dL (NEG) Urine Blood Trace (NEG) Urine Nitrite Neg (NEG) Urine Bilirubin Neg (NEG) Urine Urobilinogen Dipstick 0.2 mg/dL (0.2 mg/dL) Urine Leukocyte Esterase Neg (NEG) Urine RBC 1-2 /HPF (0-2) Urine WBC 0 /HPF (0-4) Urine Squamous Epithelial Cells Few /LPF Urine Bacteria 0 /HPF (0-FEW) Bedside Urine HCG, Qualitative hcg negative (Negative) Prothrombin Time 10.1 SEC (9.4-11.4) Prothromb Time International Ratio 1.0 (0.9-1.1) Activated Partial Thromboplast Time 25 SEC (23-33) D-Dimer (Collette) 0.37 mg/L (0.00-0.50) Sodium Level 138 mmol/L (136-145) Potassium Level 4.0 mmol/L (3.5-5.1) Chloride Level 103 mmol/L (98-107) Carbon Dioxide Level 26 mmol/L (21-32) Anion Gap 9 (6-14) Blood Urea Nitrogen 8 mg/dL (7-20) Creatinine 0.6 mg/dL (0.6-1.0) Estimated GFR (Cockcroft-Gault) 106.3 BUN/Creatinine Ratio 13 (6-20) Glucose Level 104 mg/dL (70-99) Calcium Level 8.3 mg/dL (8.5-10.1) Magnesium Level 2.1 mg/dL (1.8-2.4) Total Bilirubin 0.3 mg/dL (0.2-1.0) Aspartate Amino Transf (AST/SGOT) 21 U/L (15-37) Alanine Aminotransferase (ALT/SGPT) 34 U/L (14-59) Alkaline Phosphatase 100 U/L (46-116) RJ-Dha-X-Type Natriuretic Peptide 145 pg/mL (0-124) Total Protein 6.6 g/dL (6.4-8.2) Albumin 3.1 g/dL (3.4-5.0) Albumin/Globulin Ratio 0.9 (1.0-1.7) Test 09/09/21 14:30 09/09/21 18:00 09/09/21 20:50 Troponin I High Sensitivity 69 ng/L (4-50) 60 ng/L (4-50) SARS-CoV-2 Antigen (Rapid) Negative (NEGATIVE) ECHOCARDIOGRAM Echocardiogram <Conclusion> The left ventricular systolic function is normal and the ejection fraction is within normal range. The Ejection Fraction is 60-65%. There is normal LV segmental wall motion. DATE: 04/28/19162922 - 2D + DOPPLER ECHO Interpretation Summary Technically difficult study The left ventricular size is normal. Mild concentric hypertrophy. The left ventricular systolic function is normal. The visually estimated ejection fr action is 60%. There are no segmental wall motion abnormalities. No thrombus present. The right ventricle is probably normal in size. The right ventricular systolic function is probably normal. Left Atrium: Mildly dilated. No obvious shunt by agitated saline injection (technically difficult image) No significant valvular abnormalities. No pericardial effusion. Compared with study dated 06/15/19, no significant change is noted. HEART CATH Heart Cath CORONARY ANGIOGRAPHY: LM is a large caliber vessel with normal angiographic appearance. LAD is a large caliber vessel with normal angiographic appearance. D1 is a small caliber vessel with normal angiographic apeparance. LCx is a moderate caliber non-dominant vessel with normal angiographic appearance. OM1 is a moderate caliber vessel with normal angiographic appearance. RCA is a large caliber dominant vessel with normal angiographic appearance. RPDA and RPL are moderate caliber vessels with normal angiographic appearance. Conclusion 1. Normal left sided filling pressures. 2. Normal LVEDP. 3. Normal LV function. 4. Normal angiographic appearance of the coronary arteries. Recommendations Aggressive Medical Therapy DATE: 03/24/16 1410 CARDIAC CATHETERIZATION REPORT DATE: 06/10/2019 Coronary artery disease with a severe/subtotal stenosis in the proximal/mid LAD. Successful intervention, placing a 3.0 by 12 mm drug-eluting stent postop with a 3.25 mm balloon. Mild diffuse disease elsewhere. ASSESSMENT/PLAN Assessment/Plan 1. Chest pain; AMI ruled out; most probably related to #2 2. Hypertensive urgency; remains elevated. Increase lisinopril. No BB with bradycardia 3. CAD s/p PCI/stent to the LAD in 2018. Follows with Dr. Abe MOODY. Secondary prevention. Outpatient ischemic evaluation 4. Hyperlipidemia; statin 5. PAFIB; presently SR 6. Bradycardia; overnight, HR lowest 38. no pauses. 7. H/o CVA 8. Hypothyroidism RADHA WYNNE APRN Sep 10, 2021 08:39
[2021-09-10] MEDS ORDERED: ASPIRIN 325 MG TABLET PO SCH (09:00)
[2021-09-10] MEDS ORDERED: LISINOPRIL 10 MG TABLET PO SCH (09:00)
[2021-09-10] MEDS ORDERED: LISINOPRIL 20 MG TABLET PO SCH (09:00)
[2021-09-10] MEDS ORDERED: ASPIRIN CHEWABLE 81 MG TABLET. PO SCH (09:00)
[2021-09-10] MEDS ORDERED: hydroCHLOROthiazide 12.5 MG CAPSULE PO SCH (09:00)
[2021-09-10] MEDS ORDERED: APIX5TAB3 PO (09:29)
[2021-09-10] MEDS ORDERED: HYDR12.572 PO (09:29)
--- NOTE | 2021-09-10 10:33 | HP ---
DATE OF SERVICE: 09/10/2021 ADMIT DATE: 09/09/2021 HISTORY OF PRESENT ILLNESS: The patient is a 50-year-old female, who was at work when she noted blood pressure to be well over 250/120, began to have chest pain. 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 The patient also has a previous stroke here in the last couple of months. The patient was seen in the Emergency Room and admitted for rule out [facility] protocol, some chest pain was noted and she is high risk. She has one stent. Apparently, she did forget to take some of her blood pressure pills morning of admission. PAST MEDICAL HISTORY: Stroke, TIAs, cervical fusion, headaches, cardiac stent placement in 2019, cardiac catheterization 2 years ago, coronary stent in the LAD, hypercholesterolemia, hypertension, tubal ligation, x2, orthopedic surgery, neck fusion, back pain, hypothyroidism, influenza and COVID vaccines up to date. ALLERGIES: No known allergies. MEDICATIONS: Include Eliquis 5 mg b.i.d., clonidine 0.1 p.r.n. for elevated blood pressure, lisinopril/HCTZ, aspirin 81, hydrochlorothiazide 12.5 mg, atorvastatin 80 mg a day. SOCIAL HISTORY: The patient denies smoking, alcohol or drug use and is a full code. REVIEW OF SYSTEMS: The patient notes some shortness of breath, chest pain, anxiety. Denies headaches, visual changes, blurred vision, any neurological phenomenon. The patient otherwise denies any nausea, vomiting, diaphoresis. Denies any melena, hematochezia, hematemesis and neurologically patient is alert and oriented. PHYSICAL EXAMINATION: GENERAL: This is a very pleasant female, in moderate amount of distress, somewhat anxious appearing. VITAL SIGNS: Blood pressure initially 197/97, respiratory rate 18, pulse 55, temperature afebrile, 98 on room air. HEENT: The patient's head atraumatic, normocephalic. Eyes: PERRL, EOMI. Sclerae are clear. Fundi benign. Mouth and throat were normal. NECK: Supple without JVD, carotid bruits, or thyromegaly. LUNGS: Diminished, poor movement of air, but clear. CARDIOVASCULAR: Regular sinus rhythm, S1, S2, without murmur, rub, thrill, or extra heart sounds. ABDOMEN: Soft, nontender. No rebound or guarding. Positive bowel sounds. No hepatosplenomegaly was noted. EXTREMITIES: No clubbing, cyanosis, nor edema. NEUROLOGIC: The patient was alert and oriented x 3. IMPRESSION: Angina, history of coronary artery disease, hypertensive urgency, moderate protein malnutrition, mild hyperglycemia. SARS-COVID negative. Chest x-ray unremarkable. The patient was admitted. Consulted with Cardiology. The patient remained stable. We will continue to monitor blood pressure and make further evaluation on her as indicated. DOMINICK/ANGELIC DR: Gurjit TID: [id number]
--- NOTE | 2021-09-17 06:38 | EKG ---
[address] [address] Test Date: 2021-09-16 Test Time: 21:14:15 Pat Name: ENMA RAMEY Department: Room: ED HOLD 04 Gender: F Pattern Carrier: ADA : 1970 Requested By: SILVINO STUART Order Number: [id number] Reading MD: Measurements Intervals [place] Rate: 51 P: 48 [place]: 168 QRS: 38 QRSD: 84 T: 36 QT: 420 QTc: 385 Interpretive Statements SINUS RHYTHM NORMAL ECG RI6.01 No previous ECG available for comparison
== END 2021-09-10 10:15 | disposition home or self-care (01) ==
LOC: ER 11:12 → ER HOLD 13:53 → INTOOBSV 13:53 → 1 SOUTH 17:05
PROVIDERS: ADMIT Family Medicine; ATTEND Family Medicine
DX: I20.9 Angina pectoris, unspecified (principal); Z20.822 Contact with and (suspected) exposure to COVID-19; I16.0 Hypertensive urgency; I10 Essential (primary) hypertension; R07.89 Other chest pain; I48.0 Paroxysmal atrial fibrillation; I63.9 Cerebral infarction, unspecified; I25.2 Old myocardial infarction; E03.9 Hypothyroidism, unspecified; E78.00 Pure hypercholesterolemia, unspecified; E78.5 Hyperlipidemia, unspecified; E44.0 Moderate protein-calorie malnutrition; R00.1 Bradycardia, unspecified; Z86.73 Personal history of transient ischemic attack (TIA), and cerebral infarction without residual deficits; Z95.5 Presence of coronary angioplasty implant and graft; Z98.1 Arthrodesis status; Z68.36 Body mass index [BMI] 36.0-36.9, adult; Z90.710 Acquired absence of both cervix and uterus; Z98.51 Tubal ligation status; Z90.49 Acquired absence of other specified parts of digestive tract; Z79.899 Other long term (current) drug therapy; Z98.890 Other specified postprocedural states; Z95.1 Presence of aortocoronary bypass graft
CPT/HCPCS: 36415; 71045; 80053; 81001; 81025; 83735; 83880; 84484; 85025; 85379; 85610; 85730; 87426; 93005; 99285; G0378; U0003; G0379

== ENCOUNTER 2021-09-16 20:34 | Emergency (ER) | payer OTHER ==
[~2021-09-16] VITALS: Ht 170.2 cm; Wt 107.4 kg
[~2021-09-16 20:34] MED LIST changes: +ATORVASTATIN CA80 MG PO; +CLON0.1T PO
[2021-09-16 21:01] VITALS: BP 148/77
[2021-09-16] MEDS ORDERED: ASPIRIN CHEWABLE 81 MG TABLET. PO ONE (21:30)
[2021-09-16 22:03] LABS: BASO % 0 % (0-3); EOS # 0.2 x10^3/uL (0.0-0.7); EOS % 2 % (0-3); HEMATOCRIT 41.6 % (36.0-47.0); HEMOGLOBIN 14.1 g/dL (12.0-15.5); LYMPH # 2.8 x10^3/uL (1.0-4.8); LYMPH % 34 % (24-48); MEAN CORPUSCULAR HEMOGLOBIN 28 pg (25-35); MEAN CORPUSCULAR HGB CONC 34 g/dL (31-37); MEAN CORPUSCULAR VOLUME 83 fL (79-100); MONO # 0.5 x10^3/uL (0.0-1.1); MONO % 6 % (0-9); NEUT # 4.8 x10^3uL (1.8-7.7); NEUT % 58 % (31-73); PLATELET COUNT 239 x10^3/uL (140-400); WHITE BLOOD COUNT 8.3 x10^3/uL (4.0-11.0)
[2021-09-16 22:11] LABS: CALCIUM 8.5 mg/dL (8.5-10.1); CREATININE 0.7 mg/dL (0.6-1.0); GFR 88.9; POTASSIUM 3.4 mmol/L (3.5-5.1)
[2021-09-16 22:19] LABS: CLARITY,URINE CLEAR; COLOR,URINE YELLOW; GLUCOSE,URINE NEG (NEG); NITRITE,URINE NEG (NEG); UROBILINOGEN,URINE 0.2 mg/dL (0.2 mg/dL)
[2021-09-16 22:20] LABS: BACTERIA,URINE 0 /HPF (0-FEW); SQUAMOUS EPITHELIAL CELL,UR FEW /LPF; WBC,URINE 0 /HPF (0-4)
[2021-09-16 22:22] LABS: ALBUMIN 3.5 g/dL (3.4-5.0); ALBUMIN/GLOBULIN RATIO 1.1 (1.0-1.7); MAGNESIUM 1.9 mg/dL (1.8-2.4); TOTAL BILIRUBIN 0.5 mg/dL (0.2-1.0); TOTAL PROTEIN 6.6 g/dL (6.4-8.2)
--- NOTE | 2021-09-16 22:35 | PHYS DOC ---
Past History Past Medical History: A-Fib, CAD, CVA, Hypertension, SD, Stroke (TAO BRAXTON APRN) Past Surgical History: Angioplasty, , Tubal ligation, Other Additional Past Surgical Histo: cardiac stent in LAD (TAO BRAXTON APRN) Smoking: Non-smoker Alcohol Use: None Drug Use: None (TAO BRAXTON APRN) Adult General Chief Complaint Chief Complaint: CHEST PAIN HPI HPI Patient is a 50-year-old female presents to the emergency department complaining of left-sided chest discomfort that started last night, sudden onset at approximately midnight, states (TAO BRAXTON APRN) HPI See [facility] chart for details. Possible loss of information. See Downtime tickert [id number] (CHRISTINA MATOS MD) Review of Systems Review of Systems Constitutional: Denies fever or chills [] Eyes: Denies change in visual acuity, redness, or eye pain [] HENT: Denies nasal congestion or sore throat [] Respiratory: Denies cough or shortness of breath [] Cardiovascular: No additional information not addressed in HPI [] GI: Denies abdominal pain, nausea, vomiting, bloody stools or diarrhea [] : Denies dysuria or hematuria [] Musculoskeletal: Denies back pain or joint pain [] Integument: Denies rash or skin lesions [] Neurologic: Denies headache, focal weakness or sensory changes [] Endocrine: Denies polyuria or polydipsia [] All other systems were reviewed and found to be within normal limits, except as documented in this note. (TAO BRAXTON APRN) Current Medications Current Medications Current Medications Medications (Trade) Dose Ordered Sig/Chio Start Time Stop Time Status Last Admin Dose Admin Aspirin (Aspirin Chewable) 324 mg 1X ONCE 09/16/21 21:30 09/16/21 21:44 DC 09/16/21 21:46 324 MG (TAO BRAXTON APRN) Allergies Allergies Allergies Coded Allergies Type Severity Reaction Last Updated Verified No Known Drug Allergies 10/30/14 No (TAO BRAXTON APRN) Physical Exam Physical Exam Constitutional: Well developed, well nourished, no acute distress, non-toxic appearance. [] HENT: Normocephalic, atraumatic, bilateral external ears normal, oropharynx moist, no oral exudates, nose normal. [] Eyes: PERRLA, EOMI, conjunctiva normal, no discharge. [] Neck: Normal range of motion, no tenderness, supple, no stridor. [] Cardiovascular:Heart rate regular rhythm, no murmur [] Lungs & Thorax: Bilateral breath sounds clear to auscultation [] Abdomen: Bowel sounds normal, soft, no tenderness, no masses, no pulsatile masses. [] Skin: Warm, dry, no erythema, no rash. [] Back: No tenderness, no CVA tenderness. [] Extremities: No tenderness, no cyanosis, no clubbing, ROM intact, no edema. [] Neurologic: Alert and oriented X 3, normal motor function, normal sensory function, no focal deficits noted. [] Psychologic: Affect normal, judgement normal, mood normal. [] (TAO BRAXTON APRN) Current Patient Data Vital Signs Vital Signs Date Time Temp Pulse Resp B/P (MAP) Pulse Ox O2 Delivery O2 Flow Rate FiO2 09/16/21 21:01 97.6 54 18 148/77 (100) 100 Room Air Lab Results Laboratory Tests Test 09/16/21 21:03 09/16/21 21:40 09/17/21 00:20 Urine Collection Type Clean catch Urine Color Yellow Urine Clarity Clear Urine pH 5.5 Urine Specific [place] >=1.030 Urine Protein Neg Urine Glucose (UA) Neg mg/dL Urine Ketones (Stick) Neg mg/dL Urine Blood Small Urine Nitrite Neg Urine Bilirubin Neg Urine Urobilinogen Dipstick 0.2 mg/dL Urine Leukocyte Esterase Neg Urine RBC 3-5 /HPF Urine WBC 0 /HPF Urine Squamous Epithelial Cells Few /LPF Urine Bacteria 0 /HPF White Blood Count 8.3 x10^3/uL Red Blood Count 5.00 x10^6/uL Hemoglobin 14.1 g/dL Hematocrit 41.6 % Mean Corpuscular Volume 83 fL Mean Corpuscular Hemoglobin 28 pg Mean Corpuscular Hemoglobin Concent 34 g/dL Red Cell Distribution Width 14.0 % Platelet Count 239 x10^3/uL Neutrophils (%) (Auto) 58 % Lymphocytes (%) (Auto) 34 % Monocytes (%) (Auto) 6 % Eosinophils (%) (Auto) 2 % Basophils (%) (Auto) 0 % Neutrophils # (Auto) 4.8 x10^3uL Lymphocytes # (Auto) 2.8 x10^3/uL Monocytes # (Auto) 0.5 x10^3/uL Eosinophils # (Auto) 0.2 x10^3/uL Basophils # (Auto) 0.0 x10^3/uL Prothrombin Time 11.0 SEC Prothromb Time International Ratio 1.1 Activated Partial Thromboplast Time 28 SEC D-Dimer (Collette) < 0.19 mg/L Sodium Level 135 mmol/L Potassium Level 3.4 mmol/L Chloride Level 101 mmol/L Carbon Dioxide Level 25 mmol/L Anion Gap 9 Blood Urea Nitrogen 15 mg/dL Creatinine 0.7 mg/dL Estimated GFR (Cockcroft-Gault) 88.9 BUN/Creatinine Ratio 21 Glucose Level 126 mg/dL Calcium Level 8.5 mg/dL Magnesium Level 1.9 mg/dL Total Bilirubin 0.5 mg/dL Aspartate Amino Transf (AST/SGOT) 20 U/L Alanine Aminotransferase (ALT/SGPT) 38 U/L Alkaline Phosphatase 114 U/L Creatine Kinase 158 U/L Troponin I High Sensitivity 19 ng/L 22 ng/L AH-Ssh-L-Type Natriuretic Peptide 14 pg/mL Total Protein 6.6 g/dL Albumin 3.5 g/dL Albumin/Globulin Ratio 1.1 Lipase 206 U/L Current Medications Medications (Trade) Dose Ordered Sig/Chio Route PRN Reason Start Time Stop Time Status Last Admin Dose Admin Aspirin (Aspirin Chewable) 324 mg 1X ONCE PO 09/16/21 21:30 09/16/21 21:44 DC 09/16/21 21:46 Ketorolac Tromethamine (Toradol 30mg Vial) 30 mg 1X ONCE IVP 09/16/21 22:45 09/16/21 23:01 DC 09/16/21 23:03 Sodium Chloride 1,000 ml @ 1,000 mls/hr 1X ONCE IV 09/16/21 22:45 09/16/21 23:44 DC 09/16/21 23:02 Potassium Chloride (Klor-Con) 20 meq 1X ONCE PO 09/16/21 22:45 09/16/21 23:01 DC 09/16/21 23:03 Laboratory Tests Test 09/16/21 21:03 09/16/21 21:40 Urine Collection Type Clean catch Urine Color Yellow Urine Clarity Clear Urine pH 5.5 Urine Specific [place] >=1.030 Urine Protein Neg (NEG-TRACE) Urine Glucose (UA) Neg mg/dL (NEG) Urine Ketones (Stick) Neg mg/dL (NEG) Urine Blood Small (NEG) Urine Nitrite Neg (NEG) Urine Bilirubin Neg (NEG) Urine Urobilinogen Dipstick 0.2 mg/dL (0.2 mg/dL) Urine Leukocyte Esterase Neg (NEG) Urine RBC 3-5 /HPF (0-2) Urine WBC 0 /HPF (0-4) Urine Squamous Epithelial Cells Few /LPF Urine Bacteria 0 /HPF (0-FEW) White Blood Count 8.3 x10^3/uL (4.0-11.0) Red Blood Count 5.00 x10^6/uL (3.50-5.40) Hemoglobin 14.1 g/dL (12.0-15.5) Hematocrit 41.6 % (36.0-47.0) Mean Corpuscular Volume 83 fL (79-100) Mean Corpuscular Hemoglobin 28 pg (25-35) Mean Corpuscular Hemoglobin Concent 34 g/dL (31-37) Red Cell Distribution Width 14.0 % (11.5-14.5) Platelet Count 239 x10^3/uL (140-400) Neutrophils (%) (Auto) 58 % (31-73) Lymphocytes (%) (Auto) 34 % (24-48) Monocytes (%) (Auto) 6 % (0-9) Eosinophils (%) (Auto) 2 % (0-3) Basophils (%) (Auto) 0 % (0-3) Neutrophils # (Auto) 4.8 x10^3uL (1.8-7.7) Lymphocytes # (Auto) 2.8 x10^3/uL (1.0-4.8) Monocytes # (Auto) 0.5 x10^3/uL (0.0-1.1) Eosinophils # (Auto) 0.2 x10^3/uL (0.0-0.7) Basophils # (Auto) 0.0 x10^3/uL (0.0-0.2) Prothrombin Time 11.0 SEC (9.4-11.4) Prothrombin Time INR 1.1 (0.9-1.1) Activated Partial Thromboplast Time 28 SEC (23-33) D-Dimer (Collette) < 0.19 mg/L (0.00-0.50) Sodium Level 135 mmol/L (136-145) L Potassium Level 3.4 mmol/L (3.5-5.1) L Chloride Level 101 mmol/L (98-107) Carbon Dioxide Level 25 mmol/L (21-32) Anion Gap 9 (6-14) Blood Urea Nitrogen 15 mg/dL (7-20) Creatinine 0.7 mg/dL (0.6-1.0) Estimated GFR (Cockcroft-Gault) 88.9 BUN/Creatinine Ratio 21 (6-20) H Glucose Level 126 mg/dL (70-99) H Calcium Level 8.5 mg/dL (8.5-10.1) Magnesium Level 1.9 mg/dL (1.8-2.4) Total Bilirubin 0.5 mg/dL (0.2-1.0) Aspartate Amino Transferase (AST) 20 U/L (15-37) Alanine Aminotransferase (ALT) 38 U/L (14-59) Alkaline Phosphatase 114 U/L (46-116) Creatine Kinase 158 U/L (26-192) Troponin I High Sensitivity 19 ng/L (4-50) GY-Uil-Y-Type Natriuretic Peptide 14 pg/mL (0-124) Total Protein 6.6 g/dL (6.4-8.2) Albumin 3.5 g/dL (3.4-5.0) Albumin/Globulin Ratio 1.1 (1.0-1.7) Lipase 206 U/L (73-393) (TAO BRAXTON APRN) EKG EKG EKG performed at 2113 by ED nursing staff shows a bradycardic sinus rhythm without other ectopy, heart rate 51 bpm UT interval 0.168, QTc interval 0.385, no acute STEMI, no ACS, no acute ischemia appreciated, EKG interpreted by ED attending physician Dr. Matos. Repeat serial EKG performed at 2145 by ED nursing staff shows a bradycardic s inus rhythm without other ectopy, heart rate 53 bpm, UT interval 0.166, QTc interval 0.411, no acute STEMI, no ACS, no acute ischemia appreciated, EKG interpreted by ED attending physician Dr. Matos. (TAO BRAXTON APRN) Radiology/Procedures Radiology/Procedures REASON: Chest pain PROCEDURE: PORTABLE CHEST 1V XR CHEST 1V 09/16/2021 9:45 PM INDICATION: Chest pain COMPARISON: 09/09/2021 TECHNIQUE: Portable frontal view of the chest is provided. FINDINGS: The cardiomediastinal silhouette is within normal limits. Lungs are clear. There are no significant pleural effusions. There is no pulmonary vascular congestion. No pneumothorax. No suspicious osseous abnormality. Anterior cervical discectomy and fusion hardware identified from C5 through C6 7. IMPRESSION: There is no acute cardiopulmonary process. Electronically signed by: Holley Oneil MD (09/16/2021 11:06 PM) [facility] (TAO BRAXTON APRN) Heart Score C/O Chest Pain: Yes HEART Score for Chest Pain: HEART Score for Chest Pain Response (Comments) Value History Moderately Suspicious 1 ECG Normal 0 Age >45 - < 65 1 Risk Factors 1 or 2 Risk Factors 1 Troponin < Normal Limit 0 Total 3 Risk Factors: Risk Factors: DM, Current or recent (<one month) smoker, HTN, HLP, family history of CAD, obesity. Risk Scores: Risk Factors: DM, Current or recent (<one month) smoker, HTN, HLP, family history of CAD, obesity. (TAO BRAXTON APRN) Course & Med Decision Making Course & Med Decision Making Pertinent Labs and Imaging studies reviewed. (See chart for details) 50-year-old female, vital signs reviewed, presents to the emergency department concerning left-sided chest pain. Patient does have a cardiac history however patient's physical examination is unremarkable, suspicious for noncardiac chest wall pain versus dyspepsia, will order serial EKG x2, serial high-sensitivity troponin I, CBC, CMP, PT/INR, PTT, D-dimer, chest x-ray. Patient's D-dimer is nonconcerning for DVT or PE, chest x-ray nonconcerning, serial EKGs x2 nonconcerning, initial troponin I is nonconcerning, will wait for second serial high-sensitivity troponin I, CBC, CMP unremarkable, upon reeval uation of the patient to discuss labs patient reports she is pain-free, reports chest pain went from a 4 out of 10 down to a 0 out of 10, denies any chest discomfort or physical concerns at this time, discussed with patient waiting for second serial troponin prior to making decision to admit or release to home, patient is amenable to ED planning. Patient's second 3-hour high-sensitivity troponin I is unremarkable, no significant change indicating this is a cardiac event. Patient remains pain- free, symptom-free, hemodynamically stable, reports she has an appointment to see her primary care physician at 4:00 PM today, discussed with patient strict follow-up with primary care, keep appointment, return to ER precautions and concerns were reviewed, discussed with patient to discuss with her primary care physician of her ER visit today so that he may obtain records. Patient gave verbal understanding of and is amenable to ED discharge planning. Discussed with the patient all findings and diagnostic testing as well as the need to follow-up with their primary care provider for further evaluation and treatment or return to the ED if any new or worsening symptoms. Strict return precautions were also discussed at length, the patient voiced understanding and agreement with the discharge planning. The patient was nontoxic in appearance, in no apparent distress, and hemodynamically stable at the time of disposition. (TAO BRAXTON APRN) Dragon Disclaimer Dragon Disclaimer This electronic medical record was generated, in whole or in part, using a voice recognition dictation system. (TAO BRAXTON APRN) Dragon Disclaimer See charting Oliver for detail. s Downtime ticket [id number]. (CHRISTINA MATOS MD) Departure Departure: Impression: Primary Impression: Chest pain Disposition: 01 HOME / SELF CARE / HOMELESS Condition: GOOD Referrals: SUKH LIRIANO MD (PCP) Patient Instructions: Chest Pain (Nonspecific) Additional Instructions: You were seen today in the emergency department for chest pain. Your ED examination and work-up is reassuring and that your cardiac enzymes were not elevated, your chest x-ray did not show any signs of cardiac disease or lung disease, your lab work is nonconcerning, you are pain-free and your vital signs remained within normal limits during your ER stay. Please keep your appointment with Dr. Liriano today at 4 PM, please let him know you were here in the emergency department so that he may obtain records of today's ER visit and events. Return to the emergency department for return of chest pain, worsening symptoms, or other concerns. Thank you for visiting our Emergency Department. It was a pleasure taking care of you today in the emergency department and we appreciate you trusting us with your care. If any additional problems come up don't hesitate to return to visit us. Please follow up with your primary care provider so they can plan additional care if needed and know about the problem that you had. If symptoms worsen come back to the Emergency Department. Any concerning symptoms that start such as chest pain, shortness of air, weakness or numbness on one side of the body, running high fevers or any other concerning symptoms return to the ER. EMERGENCY DEPARTMENT GENERAL DISCHARGE INSTRUCTIONS Thank you for coming to [facility] (ED) today and trusting us with you care. We trust that you had a positivie experience in our Emergency Department. If you wish to speak to the department management, you may call the director at [phone]. YOUR FOLLOW UP INSTRUCTIONS ARE FOLLOWS: 1. Do you have a private Doctor? If you do not have a private doctor, please ask for a resource list of physicians or clinics that may be able to assist you with follow up care. 2. The Emergency Physician has interpreted your x-rays. The X-Ray specialist will also review them. If there is a change in the findings, you will be notified in 48 hours when at all possible. 3. A lab test or culture has been done, your results will be reviewed and you w ill be notified if you need a change in treatment. ADDITIONAL INSTRUCTIONS AND INFORMATION: 1. Your care today has been supervised by a physician who is specially trained in emergency care. Many problems require more than one evaluation for a complete diagnosis and treatment. We recommend that you schedule your follow up appointment as recommended to ensure complete treatment of you illness or injury. If you are unable to obtain follow up care and continue to have a problem, or if your condition worsens, we recommend that you return to the ED. 2. We are not able to safely determine your condition over the phone nor are we able to give sound medical advice over the phone. For these safety reasons, if you call for medical advice we will ask you to come to the ED for further evaluation. 3. If you have any questions regarding these discharge instructions please call the ED at [phone]. SAFETY INFORMATION: In the interest of safety, wellness, and injury prevention; we encourage you to wear your sealbelt, if you smoke; quite smoking, and we encourage family to use a protective helmet for bicycling and other sporting events that present an increased risk for head injury. IF YOUR SYMPTOMS WORSEN OR NEW SYMPTOMS DEVELOP, OR YOU HAVE CONCERNS ABOUT YOUR CONDITION; OR IF YOUR CONDITION WORSENS WHILE YOU ARE WAITING FOR YOUR FOLLOW UP APPOINTMENT; EITHER CONTACT YOUR PRIMARY CARE DOCTOR, THE PHYSICIAN WHOSE NAME AND NUMBER YOU WERE GIVEN, OR RETURN TO THE ED IMMEDIATELY. Dragon Disclaimer This chart was dictated in whole or in part using Voice Recognition software in a busy, high-work load, and often noisy Emergency Department environment. It may contain unintended and wholly unrecognized errors or omissions. (CHRISTINA MATOS MD) Attending Signature Attending Signature I have participated in the care of this patient and I have reviewed and agree with all pertinent clinical information above including history, exam, and re commendations. (CHRISTINA MATOS MD) Problem Qualifiers Primary Impression: Chest pain Chest pain type: unspecified Qualified Codes: R07.9 - Chest pain, unspecified TAO BRAXTON APRN Sep 16, 2021 22:35 CHRISTINA MATOS MD Sep 17, 2021 04:31
[2021-09-16] MEDS ORDERED: KETOROLAC 30 MG/ML VIAL. IVP ONE (22:45)
[2021-09-16] MEDS ORDERED: POTASSIUM CHLORIDE 20 MEQ TABLET.ER. PO ONE (22:45)
[2021-09-16] MEDS ORDERED: IV NORMAL SALINE 1,000ML 1,000 ML IV ONE (22:45)
--- NOTE | 2021-09-16 23:09 | RAD ---
XR CHEST 1V 09/16/2021 9:45 PM INDICATION: Chest pain COMPARISON: 09/09/2021 TECHNIQUE: Portable frontal view of the chest is provided. FINDINGS: The cardiomediastinal silhouette is within normal limits. Lungs are clear. There are no significant pleural effusions. There is no pulmonary vascular congestion. No pneumothora x. No suspicious osseous abnormality. Anterior cervical discectomy and fusion hardware identified from C 5 through C6 7. IMPRESSION: There is no acute cardiopulmonary process. Electronically signed by: Holley Oneil MD (09/16/2021 11:06 PM) [facility]
--- NOTE | 2021-09-17 06:39 | EKG ---
[address] [address] Test Date: 2021-09-16 Test Time: 21:46:26 Pat Name: ENMA RAMEY Department: Room: Gender: F Baker Test: ADA : 1970 Requested By: CHRISTINA WEST Order Number: [id number] Reading MD: Measurements Intervals [place] Rate: 53 P: 36 SD: 166 QRS: 37 QRSD: 84 T: 35 QT: 436 QTc: 411 Interpretive Statements SINUS RHYTHM NO SPECIFIC ECG ABNORMALITIES RI6.01 Compared to ECG 09/16/2021 21:14:15 No significant changes
== END 2021-09-17 01:30 | disposition home or self-care (01) ==
LOC: ER 20:34
DX: R07.89 Other chest pain (principal); I48.91 Unspecified atrial fibrillation; I25.10 Atherosclerotic heart disease of native coronary artery without angina pectoris; I10 Essential (primary) hypertension; I25.2 Old myocardial infarction; Z86.73 Personal history of transient ischemic attack (TIA), and cerebral infarction without residual deficits
CPT/HCPCS: 36415; 71045; 80053; 81001; 82550; 83690; 83735; 83880; 84484; 85025; 85379; 85610; 85730; 93005; 96361; 96374; 99285; J1885; J7030